=== PATIENT | female | born 1945 | race Caucasian/White ===

== ENCOUNTER → 2019-06-16 | Outpatient (CLI) | payer MEDICARE | LOC: RAD 10:26 | PROVIDERS: ATTEND Pediatrics | DX: Z12.31 Encounter for screening mammogram for malignant neoplasm of breast (principal) ==

== ENCOUNTER → 2019-06-19 | Outpatient (CLI) | payer MEDICARE ==
--- NOTE | 2019-06-19 14:01 | Diagnostic Imaging Report ---
Indication: Palpable lump left breast. No prior mammograms are available for comparison. 2-D and 3-D bilateral diagnostic mammography was performed with CAD. Scattered fibroglandular densities are identified bilaterally. There is a spiculated mass slightly outer left breast mid depth with an area of palpable abnormality. This is concerning for a neoplasm. No suspicious microcalcifications are seen. Axillae are unremarkable. IMPRESSION: BI-RADS 0 Spiculated density in the left breast slightly lower and outer aspect of the area of palpable abnormality, concerning for neoplasm. Further evaluation with ultrasound is recommended and will be performed today. Dictated by: Dictated on workstation # [id number]
--- NOTE | 2019-06-19 15:20 | Diagnostic Imaging Report ---
INDICATION: Left breast lump and abnormal mammogram. CORRELATION is made with diagnostic mammogram earlier the same day. Sonographic interrogation of the area of lump was performed. This corresponds to the 4 o'clock location, approximately 3 cm from the nipple. There is an irregular hypoechoic solid appearing mass at this location measuring 3.2 x 2.5 x 4.0 cm. There is internal vascularity. There appears to be some posterior acoustic shadowing. This is concerning for a breast neoplasm. This does correspond to the abnormality noted mammographically. Left axilla was also performed. There is a somewhat prominent fatty lymph node measuring 2.9 x 2.1 x 1.1 cm. IMPRESSION: BI-RADS Category 4 Irregular hypoechoic mass at the 4 o'clock location of the left breast, 3 cm from the nipple, corresponding to the palpable and mammographic abnormality. This is concerning for a breast neoplasm. Tissue sampling is recommended. This would be amenable to ultrasound-guided biopsy. Left axillary lymph node is indeterminate. Dictated by: Dictated on workstation # [id number]
== END ==
LOC: RAD 13:19
PROVIDERS: ATTEND Pediatrics
DX: N63.23 Unspecified lump in the left breast, lower outer quadrant (principal)
CPT/HCPCS: 76642; 77066

== ENCOUNTER → 2019-06-29 | Outpatient (CLI) | payer MEDICARE ==
[~2019-06-29] VITALS: Ht 162.6 cm; Wt 70.5 kg
[~2019-06-29] MED LIST: LIDOCAINE 1% INJ 20 ML 20 ML VIAL INJ ONE
--- NOTE | 2019-06-29 11:50 | Diagnostic Imaging Report ---
INDICATION: Left breast mass. Patient presents for ultrasound-guided biopsy. Patient was brought to the procedure room and placed on the table in the supine position. Ultrasound imaging of the left breast was performed to evaluate appropriate entry site. Skin of the left breast was prepped and draped in usual sterile fashion. Small amount of 1% lidocaine was utilized for local anesthesia. A total of 3 passes were made into the mass located at the 4:00 location of the left breast, 3 cm from the nipple utilizing a 14-gauge achieve needle. A marker clip was then deployed. Hemostasis was obtained using manual compression. Patient tolerated the procedure well and was sent for postprocedure mammogram in satisfactory condition. IMPRESSION: Successful ultrasound-guided core biopsy of the hypoechoic solid appearing mass at the 4:00 location of the left breast. Pathology results are currently pending. Dictated by: Dictated on workstation # [id number]
--- NOTE | 2019-06-29 12:22 | Diagnostic Imaging Report ---
INDICATION: Left breast mass, status post ultrasound biopsy. TECHNIQUE: Unilateral left 2D CC and ML mammography was performed. FINDINGS: There is a marker clip adjacent to the area of spiculation in the left breast. The clip is along the lateral aspect of the area of spiculation. IMPRESSION: Status post left breast biopsy with a marker clip in place. Dictated by: Dictated on workstation # [id number]
== END ==
LOC: RAD 09:19
PROVIDERS: ATTEND Pediatrics
DX: N63.20 Unspecified lump in the left breast, unspecified quadrant (principal)
CPT/HCPCS: 19083; 88305; 88360

== ENCOUNTER → 2019-07-16 | Outpatient (CLI) | payer MEDICARE, OTHER ==
[~2019-07-16] MED LIST changes: +BARIUM SUSPENSION 2.1% (VANILLA SILQ) 450 ML PO ONE; +CATHETER FLUSH 10 ML SYR IV PRN; +HOLD METFORMIN - RECEIVED CONTRAST 20 ML VIAL IV SCH; +IOHEXOL 350 MG/ML 100 ML (OMNIPAQUE 350) VIAL IV ONE; -LIDOCAINE 1% INJ 20 ML 20 ML VIAL INJ ONE; +NS 100 ML (IVPB) BAG IV ONE
--- NOTE | 2019-07-16 14:44 | Diagnostic Imaging Report ---
PROCEDURE: CT chest with contrast, CT abdomen and pelvis with and without contrast. TECHNIQUE: Pre and post intravenous contrast axial imaging of the abdomen and pelvis and post contrast axial imaging of the chest were performed. Auto Exposure Controls were utilized during the CT exam to meet ALARA standards for radiation dose reduction. INDICATION: Left breast carcinoma. COMPARISON: No prior studies are available for comparison. FINDINGS: CT chest: Irregular mass in the lateral aspect of the left breast is noted consistent with known left breast carcinoma. There is a mildly prominent lymph node in the left hilum with some cortical thickness of approximately 7 mm. Right axilla is unremarkable. No internal mammary lymphadenopathy is detected. No definite mediastinal or hilar lymphadenopathy is detected. No pericardial or pleural fluid is detected. There is a nodule in the inferior left lobe of the thyroid gland which could be further evaluated with thyroid ultrasound. A semisolid density in the right upper lobe is noted measuring 6 mm, image 47, series 3. No other parenchymal densities are identified. Osseous structures are unremarkable. IMPRESSION: 1. Left breast carcinoma with mildly prominent left axillary lymph node. Metastatic node cannot be entirely excluded. No other thoracic lymphadenopathy is detected. 2. Semi-solid 6 mm density in the right upper lobe, indeterminate. Follow-up CT chest in six months could be performed to confirm stability. 3. Inferior left lobe thyroid nodule. Dedicated thyroid ultrasound would be useful for better characterization. CT abdomen and pelvis: No discrete liver mass is identified. Gallbladder is unremarkable. No biliary ductal dilatation is seen. Pancreas and spleen are unremarkable. No adrenal mass is identified. Kidneys are unremarkable. No central, retroperitoneal or mesenteric lymphadenopathy is detected. Aorta is non-aneurysmal. The small and large bowel loops are normal caliber. Bladder is unremarkable. There is a 3 cm cyst in the left adnexa, likely ovarian. No pelvic lymphadenopathy is detected. No osteolytic or blastic lesions are identified. IMPRESSION: 1. No evidence of abdominal or pelvic lymphadenopathy or metastatic disease. 2. Left adnexal cyst, likely ovarian. Dictated by: Dictated on workstation # [id number]
--- NOTE | 2019-07-16 15:30 | Diagnostic Imaging Report ---
INDICATION: Newly diagnosed left breast carcinoma. TECHNIQUE: Patient was administered 23.2 mCi technetium 99m MDP intravenously and whole body imaging was performed after a three-hour delay. COMPARISON: No prior bone scan is available for comparison. FINDINGS: There is normal uptake of activity by the axial and appendicular skeleton. There is uptake by the kidneys with excretion into the urinary bladder. Mild uptake in the lower thoracic spine is seen in the right and left paramidline location, suggestive of facet degenerative change. There are also some probable facet degenerative changes in the lower cervical spine on the right side. There is some mild uptake in the bilateral knees as well as bilateral feet which is likely degenerative. No abnormal focus of tracer accumulation is seen to suggest osseous metastatic disease. IMPRESSION: No scintigraphic evidence of osseous metastatic disease. Dictated by: Dictated on workstation # [id number]
== END ==
LOC: CARD 11:35
PROVIDERS: ATTEND Internal Medicine Hematology & Oncology
DX: C50.912 Malignant neoplasm of unspecified site of left female breast (principal); E04.1 Nontoxic single thyroid nodule
CPT/HCPCS: 71260; 74178; 78306

== ENCOUNTER → 2019-07-17 | Outpatient (CLI) | payer MEDICARE, OTHER ==
[~2019-07-17] VITALS: Ht 162.6 cm; Wt 70.5 kg
[~2019-07-17] MED LIST changes: -BARIUM SUSPENSION 2.1% (VANILLA SILQ) 450 ML PO ONE; -CATHETER FLUSH 10 ML SYR IV PRN; -HOLD METFORMIN - RECEIVED CONTRAST 20 ML VIAL IV SCH; -IOHEXOL 350 MG/ML 100 ML (OMNIPAQUE 350) VIAL IV ONE; +LIDOCAINE 1% INJ 20 ML 20 ML VIAL INJ ONE; -NS 100 ML (IVPB) BAG IV ONE
--- NOTE | 2019-07-17 11:18 | Diagnostic Imaging Report ---
INDICATION: Left breast carcinoma. Patient presents for ultrasound-guided left axillary lymph node biopsy. FINDINGS: Patient was brought to the procedure room and placed on the bed in the supine position. Ultrasound imaging of the left axilla was performed to evaluate appropriate entry site. The left axilla was then prepped and draped in the usual sterile fashion. Small amount of 1% lidocaine was utilized for local anesthesia. A total of three passes were made into the enlarged lymph node in the left axilla utilizing a 14-gauge Achieve needle. Core biopsies were obtained. Next, a marker clip was deployed in the center of the lymph node. Hemostasis was obtained using manual compression. Patient tolerated the procedure well and left the department in stable condition. IMPRESSION: Successful ultrasound-guided core biopsy of the enlarged left axillary lymph node, as described. Pathology results are currently pending. Dictated by: Dictated on workstation # [id number]
== END ==
LOC: RAD 07:52
PROVIDERS: ATTEND Internal Medicine Hematology & Oncology
DX: C50.912 Malignant neoplasm of unspecified site of left female breast (principal)
CPT/HCPCS: 88305

== ENCOUNTER 2019-07-23 10:43 | Outpatient (RCR) | payer MEDICARE, OTHER ==
[2019-07-10 09:58] LABS: BASOPHILS # (AUTO) 0.1 10^3/uL (0.0-0.1); BASOPHILS % (AUTO) 1 % (0-10); EOSINOPHILS # (AUTO) 0.1 10^3/uL (0.0-0.3); EOSINOPHILS % (AUTO) 2 % (0-10); HEMATOCRIT 39 % (35-52); LYMPHOCYTES # (AUTO) 1.1 X 10^3 (1.0-4.0); LYMPHOCYTES % (AUTO) 22 % (12-44); MEAN CORPUSCULAR HEMOGLOBIN 31 PG (25-34); MEAN CORPUSCULAR HGB CONC 33 G/DL (32-36); MEAN CORPUSCULAR VOLUME 94 FL (80-99); MONOCYTES # (AUTO) 0.3 X 10^3 (0.0-1.0); MONOCYTES % (AUTO) 7 % (0-12); NEUTROPHILS # (AUTO) 3.6 X 10^3 (1.8-7.8); NEUTROPHILS % (AUTO) 69 % (42-75); PLATELET COUNT 212 10^3/uL (130-400); RED CELL DISTRIBUTION WIDTH 13.3 % (10.0-14.5); WHITE BLOOD COUNT 5.2 10^3/uL (4.3-11.0)
[2019-07-10 10:19] LABS: ALANINE AMINOTRANSFERASE 18 U/L (0-55); ALBUMIN 4.8 GM/DL (3.2-4.5); ALKALINE PHOSPHATASE 96 U/L (40-136); BILIRUBIN,TOTAL 0.3 MG/DL (0.1-1.0); BUN/CREATININE RATIO 10; CALCIUM 10.1 MG/DL (8.5-10.1); CARBON DIOXIDE 25 MMOL/L (21-32); CHLORIDE 105 MMOL/L (98-107); CREATININE SERUM 1.02 MG/DL (0.60-1.30); GFR ESTIMATED 53; GLUCOSE 110 MG/DL (70-105); POTASSIUM 3.8 MMOL/L (3.6-5.0); SODIUM 141 MMOL/L (135-145); TOTAL PROTEIN 8.3 GM/DL (6.4-8.2)
[2019-08-06] MEDS ORDERED: PRAV40TA2 PO (13:05)
[2019-08-06] MEDS ORDERED: LISI10TA2 PO (13:05)
== END 2019-08-05 15:53 | disposition home or self-care (01) ==
LOC: ONC 10:43
PROVIDERS: ATTEND Internal Medicine Hematology & Oncology
DX: C50.512 Malignant neoplasm of lower-outer quadrant of left female breast (principal); I10 Essential (primary) hypertension; M19.90 Unspecified osteoarthritis, unspecified site; Z85.3 Personal history of malignant neoplasm of breast
CPT/HCPCS: 80053; 85025; 99213; 99214

== ENCOUNTER → 2019-07-28 | Outpatient (CLI) | payer MEDICARE, OTHER ==
--- NOTE | 2019-07-28 10:47 | Diagnostic Imaging Report ---
PROCEDURE: US Thyroid. TECHNIQUE: Multiple real-time grayscale images were obtained of the thyroid in various projections. INDICATION: Thyroid nodule noted on recent CT. COMPARISON: Correlation is made with CT study from 07/16/2019. FINDINGS: Right lobe of the thyroid measures 4.5 x 1.3 x 1.3 cm and the left lobe measures 5.8 x 1.7 x 1.6 cm. Right lobe contains three subcentimeter cystic lesions all measuring 2-3 mm in size. Left lobe does contain a hypoechoic solid-appearing subcentimeter nodule approximately 8 mm in size. There is a dominant solid mass with central cystic changes identified in the midportion measuring 2.7 x 1.4 x 2.3 cm. This likely accounts for the nodule noted on CT. No microcalcifications are seen. Third nodule in lower pole is seen which is hypoechoic and solid measuring 1.3 x 1.4 x 1.0 cm. No microcalcifications are identified. IMPRESSION: Bilateral thyroid nodules. There is a dominant solid nodule in left lobe, as described. Fine-needle aspiration could be performed for further evaluation. Dictated by: Dictated on workstation # [id number]
== END ==
LOC: RAD 09:08
PROVIDERS: ATTEND Internal Medicine Hematology & Oncology
DX: E04.1 Nontoxic single thyroid nodule (principal)
CPT/HCPCS: 76536

== ENCOUNTER 2019-08-06 08:54 | Outpatient (CLI) | payer MEDICARE, OTHER ==
[~2019-08-06] VITALS: Ht 162.6 cm; Wt 70.9 kg
[2019-08-06] MEDS ORDERED: LISI10TA2 PO (13:05)
[2019-08-06] MEDS ORDERED: PRAV40TA2 PO (13:05)
== END 2019-08-06 13:06 | disposition home or self-care (01) ==
LOC: PREOP 08:54
PROVIDERS: ATTEND Surgery
DX: Z01.818 Encounter for other preprocedural examination (principal)

== ENCOUNTER 2019-08-10 06:00 | Day surgery (SDC) | payer MEDICARE, OTHER ==
[~2019-08-10] VITALS: Ht 162.6 cm; Wt 70.9 kg
[2019-08-10 06:25] VITALS: BP 179/83
[2019-08-10] MEDS ORDERED: LACTATED RINGERS 1,000 ML IV PRN (06:38)
[2019-08-10] MEDS ORDERED: ceFAZolin INJECTION 1,000 MG in WATER (STERILE) FOR INJECTION 10 ML IV ONE (06:45)
[2019-08-10] MEDS ORDERED: CATHETER FLUSH 10 ML SYR IV PRN (07:00)
[2019-08-10] MEDS ORDERED: 0.9% SODIUM CHLORIDE PF INJ 20 ML VIAL ONE (07:10)
[2019-08-10] MEDS ORDERED: BUP/EPI 0.5% 1:200,000 (SENSORCAINE) 30 ML VIAL ONE (07:10)
[2019-08-10] MEDS ORDERED: HEParin (CENTRAL IV FLUSH) 500 UNIT/5 ML SYR ONE (07:10)
[2019-08-10] MEDS ORDERED: MIDAZOLAM 2 MG/2 ML (VERSED) VIAL ONE (07:10)
[2019-08-10] MEDS ORDERED: PROPOFOL INJECTION 50 ML IV ONE (07:10)
[2019-08-10 08:17] VITALS: BP 136/70
--- NOTE | 2019-08-10 08:22 | Progress Note-Post Operative ---
Post-Operative Progess Note Surgeon (s)/Archeology Faculty Member (s) Surgeon JORGE JONES DO Archeology Faculty Member: na Pre-Operative Diagnosis left breast cancer Post-Operative Diagnosis same Procedure & Operative Findings Date of Procedure 08/10/19 Procedure Performed/Findings right ij u/s guided port placement Anesthesia Type mac c local Estimated Blood Loss Estimated blood loss (mL): min Specimens/Packing Specimens Removed na JORGE JONES DO Aug 10, 2019 08:22
--- NOTE | 2019-08-10 08:25 | Discharge Inst-Simple/Standard ---
Discharge Inst-Standard Patient Instructions/Follow Up Plan of Care/Instructions/FU: 2 weeks Jackie Activity as Tolerated: No Discharge Diet: Regular Diet Other Inst to Patient Follow up Appt: Make appointment for 2 week. Instructions: No lifting greater than 10 pounds. No strenuous activity. May shower in 24 hours, no tub bath or soaking. Use incentive spirometer at home as directed. No Smoking Skin/Wound Care: You have special glue over incisions it will fall off on its own. Place ice pack over port for 15 min off 30 min and repeat for first 24-48 hours to reduce swelling and discomfort. Symptoms to Report: Appetite Changes, Extremity Discoloration, Numbness/Tingling, Swelling Increased, Bleeding Excessive, Eyesight Changes, Pain Increased, Urine Color Change, Constipation(Persistent), Fever over 101 degree F, Pain/Pressure in chest, Urinating Difficulty, Cough Up/Vomit Blood, Heart Beat Irreg/Pounding, Pain/Pressure in jaw, Vaginal Bleeding Increase, Cramps in feet or legs, Lightheadedness, Pain/Pressure in shoulder, Diarrhea(Persistent), Memory Changes Suddenly, Questions/Concerns, Weight gain consecutive days, Dizziness/Fainting, Nausea/Vomiting, Shortness of Breath, Weight gain over 2 pounds If questions or concerns contact your physician Or seek help at emergency department. JORGE JONES DO Aug 10, 2019 08:25
--- NOTE | 2019-08-10 08:29 | Diagnostic Imaging Report ---
INDICATION: Fluoroscopy for Groshong catheter placement. Fluoroscopy was provided in the OR during Groshong catheter placement. 30 seconds of fluoroscopic time was utilized. A single image demonstrates a right chest wall port with tip overlying the SVC. IMPRESSION: Fluoroscopy for Groshong catheter placement. Dictated by: Dictated on workstation # [id number]
[2019-08-10 08:30] VITALS: BP 145/81
[2019-08-10 08:40] VITALS: BP_SYST 160; BP_SYST 166; BP_DIAS 77; BP_DIAS 78
--- NOTE | 2019-08-10 08:44 | Diagnostic Imaging Report ---
EXAMINATION: Chest 1 view HISTORY: s/p port COMPARISON: 07/16/2019. FINDINGS: A right port is visualized with the tip overlying the mid SVC. The lung volumes are normal. No focal consolidation is seen. No large pleural effusion or pneumothorax is seen. The cardiomediastinal silhouette is normal in size and contour. No acute osseous abnormality is seen. IMPRESSION: 1. Right port with the tip overlying the mid SVC. 2. No acute pleuroparenchymal process. Dictated by: Dictated on workstation # [id number]
[2019-08-10 09:10] VITALS: BP 164/93
--- NOTE | 2019-08-10 12:53 | OPERATIVE REPORT ---
DATE OF SERVICE: 08/10/2019 PREOPERATIVE DIAGNOSIS: Left breast cancer. POSTOPERATIVE DIAGNOSIS: Left breast cancer. PROCEDURE: Right internal jugular vein ultrasound-guided port placement. SURGEON: Jorge Mejia DO. ANESTHESIA: MAC with local. ESTIMATED BLOOD LOSS: Minimal. COMPLICATIONS: None. INDICATIONS: The patient is a 74-year-old female with left breast cancer diagnosed with left axillary involvement. She understands the risks and benefits of the procedure and wished to proceed with procedure. Consent was signed in the chart. DESCRIPTION OF PROCEDURE: The patient was taken to the operating suite. She was prepped and draped in a sterile fashion. Timeout was performed. Ultrasound was used to isolate the right internal jugular vein. The vein was then accessed using a micro access needle. The micro access wire was inserted and the needle was removed. Fluoroscopy assured proper placement. An 11-blade scalpel was used to make a small skin incision at the insertion site. A dilator was then advanced over the wire and the wire and the dilator were removed. The regular wire was placed through the sheath and placement was confirmed with fluoroscopy. The wire was then secured. Local anesthetic was infiltrated in the right neck to the right chest for pocket creation. A 15-blade scalpel was used to make a skin incision and a pocket on the right chest was created. Dilator was then advanced over the guidewire under fluoroscopy. The dilator and wire was removed. The Groshong catheter was inserted through the sheath and the sheath was then removed. The sheath was then tunneled to the pocket on the right chest. It was then cut to length and secured to the port, which was then placed within the pocket. The port was then accessed without difficulty. Blood brett without any difficulty and it was flushed with the saline and then with heparin. The subcutaneous tissues were then reapproximated using 3-0 Vicryl and the skin was then washed and dried and Skin Affix was placed over the incisions. The patient tolerated the procedure well without any complications. She was taken to the recovery room in stable condition. Chest x-ray pending. Job ID: [id number] DocumentID: [id number] Dictated Date: 08/10/2019 08:28:49 Fire Prevention Specialist Date: 08/10/2019 12:52:42 Dictated By: JORGE MEJIA DO
== END 2019-08-10 09:20 | disposition home or self-care (01) ==
LOC: SDC 06:00
PROVIDERS: ATTEND Surgery
DX: C50.912 Malignant neoplasm of unspecified site of left female breast (principal); Z11.2 Encounter for screening for other bacterial diseases; I10 Essential (primary) hypertension; E78.5 Hyperlipidemia, unspecified; Z79.899 Other long term (current) drug therapy
CPT/HCPCS: 71045; 87081

== ENCOUNTER → 2019-08-10 | Outpatient (CLI) | payer MEDICARE, OTHER ==
[~2019-08-10] MED LIST changes: -LIDOCAINE 1% INJ 20 ML 20 ML VIAL INJ ONE; +LISI10TA2 PO; +PRAV40TA2 PO
== END ==
LOC: CARD 11:09
PROVIDERS: ATTEND Internal Medicine Hematology & Oncology
DX: Z01.810 Encounter for preprocedural cardiovascular examination (principal); C50.919 Malignant neoplasm of unspecified site of unspecified female breast; I34.0 Nonrheumatic mitral (valve) insufficiency
CPT/HCPCS: 93306

== ENCOUNTER 2019-08-17 15:28 | Observation (INO) | payer MEDICARE, OTHER ==
[~2019-08-17] VITALS: Ht 165 cm; Wt 69.5 kg
[2019-08-17] VITALS: BP 144/70
[2019-08-17 16:07] LABS: BASOPHILS % (AUTO) 1 % (0-10); EOSINOPHILS % (AUTO) 2 % (0-10); HEMATOCRIT 33 % (35-52); HEMOGLOBIN 11.1 G/DL (11.5-16.0); LYMPHOCYTES # (AUTO) 0.5 X 10^3 (1.0-4.0); LYMPHOCYTES % (AUTO) 53 % (12-44); MEAN CORPUSCULAR HEMOGLOBIN 31 PG (25-34); MEAN CORPUSCULAR HGB CONC 33 G/DL (32-36); MEAN CORPUSCULAR VOLUME 94 FL (80-99); MEAN PLATELET VOLUME 12.5 FL (7.4-10.4); MONOCYTES # (AUTO) 0.1 X 10^3 (0.0-1.0); MONOCYTES % (AUTO) 11 % (0-12); NEUTROPHILS # (AUTO) 0.3 X 10^3 (1.8-7.8); NEUTROPHILS % (AUTO) 33 % (42-75); PLATELET COUNT 72 10^3/uL (130-400); RED CELL DISTRIBUTION WIDTH 12.4 % (10.0-14.5)
[2019-08-17 16:09] LABS: WHITE BLOOD COUNT 0.9 10^3/uL (4.3-11.0)
[2019-08-17] MEDS ORDERED: NS IV 1000 ML 1,000 ML IV ONE (16:09)
--- NOTE | 2019-08-17 16:09 | NUR ---
0.[address] Marin NOTIFIED
[2019-08-17] MEDS ORDERED: ONDANSETRON 4 MG/2 ML (SDV) Z0FRAN IVP ONE (16:15)
[2019-08-17 16:23] LABS: ALANINE AMINOTRANSFERASE 25 U/L (0-55); ALBUMIN 3.9 GM/DL (3.2-4.5); ALKALINE PHOSPHATASE 72 U/L (40-136); BILIRUBIN,TOTAL 0.6 MG/DL (0.1-1.0); BUN/CREATININE RATIO 13; CALCIUM 8.9 MG/DL (8.5-10.1); CARBON DIOXIDE 25 MMOL/L (21-32); CHLORIDE 103 MMOL/L (98-107); CREATININE SERUM 0.89 MG/DL (0.60-1.30); GFR ESTIMATED > 60; GLUCOSE 133 MG/DL (70-105); MAGNESIUM 1.8 MG/DL (1.6-2.4); POTASSIUM 3.7 MMOL/L (3.6-5.0); SODIUM 136 MMOL/L (135-145); TOTAL PROTEIN 6.4 GM/DL (6.4-8.2)
[2019-08-17] MEDS ORDERED: LACTATED RINGERS 1,000 ML IV ONE (16:27)
--- NOTE | 2019-08-17 16:27 | ED Abdominal Pain ---
General Chief Complaint: Abdominal/GI Problems Stated Complaint: CA PT/DIARRHEA Nursing Triage Note: PT TO ROOM 7 PER W/C PT CO OF DIARRHEA FOR 2 DAYS WEAKNESS AND NAUSEA. STARTED CHEMO LAST WEEK FOR BREAST CA. ALSO CO OF DIZZINESS AND PAIN IN LOWER BACK Sepsis Screen: No Definite Risk (DERIC LIN MEDICAL STUDENT) Source of Information: Patient Exam Limitations: No Limitations (STEPHANIE JUNIOR MD) History of Present Illness Initial Comments Ms. Pope is a 74-year old female who presents via private vehicle for diarrhea. HPI: Patient reports that she has had five episodes of watery, secretory diarrhea since 3pm yesterday. She was able to sleep through the night, but woke up this morning and has been unable to stand. When she tries to sit up or stand she feels like she is going to pass out. This is associated with nausea, but she has not vomited. She notes that she has only been able to drink 1/2 a cup of water in the last day. She received her first dose of chemotherapy last 08/12/19 for breast cancer. Her chemotherapy regimen includes: Dosetaxel, Carboplatin, Herceptin, and Pertuzumab. She is following with her Oncologist, Dr. Parker. Her diarrhea is also associated with mild back pain, bilaterally that is 3/10 in intensity. PMH: Breast Cancer, Hypertension, HLD, Osteoarthritis (DERIC LIN MEDICAL STUDENT) Date Seen by Provider: Aug 17, 2019 Time Seen by Provider: 15:46 (STEPHANIE JUNIOR MD) Allergies and Home Medications Allergies Coded Allergies: No Known Drug Allergies (Unverified , 06/29/19) Home Medications Lisinopril Unknown Strength Tablet, 1 TAB PO DAILY, (Reported) Pravastatin Sodium Unknown Strength Tablet, 1 TAB PO DAILY, (Reported) Patient Home Medication List Home Medication List Reviewed: Yes (STEPHANIE JUNIOR MD) Review of Systems Review of Systems Constitutional: no symptoms reported, dizziness, weakness EENTM: No Symptoms Reported Respiratory: No Symptoms Reported Cardiovascular: No Symptoms Reported Gastrointestinal: Diarrhea, Poor Fluid Intake Genitourinary: No Symptoms Reported Musculoskeletal: back pain Skin: no symptoms reported Psychiatric/Neurological: No Symptoms Reported Endocrine: No Symptoms Reported Hematologic/Lymphatic: No Symptoms Reported (DERIC LIN MEDICAL STUDENT) Past Gwvzgix-Sattcj-Dhstcc Hx Patient Social History Alcohol Use: Denies Use Recreational Drug Use: No Smoking Status: Never a Smoker Former Smoker, Quit: Aug 06, 1976 Recent Foreign Travel: No Contact w/Someone Who Travel: No Recent Infectious Disease Expo: No Recent Hopitalizations: No Physical Abuse: No Sexual Abuse: No (DERIC LIN MEDICAL STUDENT) Immunizations Up To Date Date of Influenza Vaccine: Apr 28, 2019 (DERIC LIN MEDICAL STUDENT) Seasonal Allergies Seasonal Allergies: Yes (DERIC LIN MEDICAL STUDENT) Past Medical History Surgeries: Yes (PORT PLACEMENT) Respiratory: No Currently Using CPAP: No Currently Using BIPAP: No Cardiac: Yes High Cholesterol, Hypertension Neurological: No Genitourinary: No Gastrointestinal: No Musculoskeletal: Yes Arthritis Endocrine: No HEENT: No Cancer: Yes Bladder, Breast Psychosocial: No Integumentary: No Blood Disorders: No (DERIC LIN MEDICAL STUDENT) Physical Exam Vital Signs Vital Signs - First Documented 08/17/19 15:30 Temp 36.5 Pulse 73 Resp 18 B/P (MAP) 159/95 (116) Pulse Ox 100 (STEPHANIE JUNIOR MD) Vital Signs Capillary Refill : Less Than 3 Seconds (DERIC LIN MEDICAL STUDENT) Height/Weight/BMI Height: '" Weight: lbs. oz. kg; 26.00 BMI Method: General Appearance: no apparent distress HEENT: normal ENT inspection Neck: normal inspection Respiratory: chest non-tender, lungs clear Cardiovascular: normal peripheral pulses, regular rate, rhythm, other (Dry mucosal membranes) Gastrointestinal: normal bowel sounds, non tender, soft Back: no CVA tenderness, no vertebral tenderness Neurologic/Psychiatric: alert, oriented x 3 Skin: warm/dry (DERIC LIN MEDICAL STUDENT) Progress/Results/Core Measures Results/Orders Lab Results Laboratory Tests Test 08/17/19 15:55 08/17/19 17:15 Range/Units White Blood Count 0.9 *L 4.3-11.0 10^3/uL Red Blood Count 3.54 L 4.35-5.85 10^6/uL Hemoglobin 11.1 L 11.5-16.0 G/DL Hematocrit 33 L 35-52 % Mean Corpuscular Volume 94 80-99 FL Mean Corpuscular Hemoglobin 31 25-34 PG Mean Corpuscular Hemoglobin Concent 33 32-36 G/DL Red Cell Distribution Width 12.4 10.0-14.5 % Platelet Count 72 L 130-400 10^3/uL Mean Platelet Volume 12.5 H 7.4-10.4 FL Neutrophils (%) (Auto) 33 L 42-75 % Lymphocytes (%) (Auto) 53 H 12-44 % Monocytes (%) (Auto) 11 0-12 % Eosinophils (%) (Auto) 2 0-10 % Basophils (%) (Auto) 1 0-10 % Neutrophils # (Auto) 0.3 L 1.8-7.8 X 10^3 Lymphocytes # (Auto) 0.5 L 1.0-4.0 X 10^3 Monocytes # (Auto) 0.1 0.0-1.0 X 10^3 Eosinophils # (Auto) 0.0 0.0-0.3 10^3/uL Basophils # (Auto) 0.0 0.0-0.1 10^3/uL Sodium Level 136 135-145 MMOL/L Potassium Level 3.7 3.6-5.0 MMOL/L Chloride Level 103 98-107 MMOL/L Carbon Dioxide Level 25 21-32 MMOL/L Anion Gap 8 5-14 MMOL/L Blood Urea Nitrogen 12 7-18 MG/DL Creatinine 0.89 0.60-1.30 MG/DL Estimat Glomerular Filtration Rate > 60 BUN/Creatinine Ratio 13 Glucose Level 133 H 70-105 MG/DL Calcium Level 8.9 8.5-10.1 MG/DL Corrected Calcium 9.0 8.5-10.1 MG/DL Magnesium Level 1.8 1.6-2.4 MG/DL Total Bilirubin 0.6 0.1-1.0 MG/DL Aspartate Amino Transf (AST/SGOT) 15 5-34 U/L Alanine Aminotransferase (ALT/SGPT) 25 0-55 U/L Alkaline Phosphatase 72 40-136 U/L Total Protein 6.4 6.4-8.2 GM/DL Albumin 3.9 3.2-4.5 GM/DL Urine Color YELLOW Urine Clarity CLEAR Urine pH 7.0 5-9 Urine Specific Gould 1.015 L 1.016-1.022 Urine Protein NEGATIVE NEGATIVE Urine Glucose (UA) NEGATIVE NEGATIVE Urine Ketones NEGATIVE NEGATIVE Urine Nitrite NEGATIVE NEGATIVE Urine Bilirubin NEGATIVE NEGATIVE Urine Urobilinogen 0.2 < = 1.0 MG/DL Urine Leukocyte Esterase NEGATIVE NEGATIVE Urine RBC (Auto) TRACE-L NEGATIVE Urine RBC NONE /HPF Urine WBC NONE /HPF Urine Renal Epithelial Cells RARE /HPF Urine Crystals NONE /LPF Urine Bacteria TRACE /HPF Urine Casts NONE /LPF Urine Mucus NEGATIVE /LPF Urine Culture Indicated NO (STEPHANIE JUNIOR MD) My Orders Orders - STEPHANIE JUNIOR MD Cbc With Automated Diff (08/17/19 15:46) Comprehensive Metabolic Panel (08/17/19 15:46) Magnesium (08/17/19 15:46) Ua Culture If Indicated (08/17/19 15:46) Ed Iv/Invasive Line Start (08/17/19 15:46) Ed Iv/Invasive Line Start (08/17/19 16:09) Ns Iv 1000 Ml (Sodium Chloride 0.9%) (08/17/19 16:09) Ondansetron Injection (Zofran Injectio (08/17/19 16:15) Lactated Ringers (Lr 1000 Ml Iv Solution (08/17/19 16:27) (STEPHANIE JUNIOR MD) Medications Given in ED Current Medications Medications Dose Ordered Sig/Amber Route Start Time Stop Time Status Last Admin Dose Admin Lactated Ringer's 1,000 ml @ 0 mls/hr Q0M ONCE IV 08/17/19 16:27 08/17/19 16:29 DC 08/17/19 17:39 1,000 MLS/HR Ondansetron HCl 8 mg ONCE ONCE IVP 08/17/19 16:15 08/17/19 16:16 DC 08/17/19 16:22 8 MG Sodium Chloride 1,000 ml @ 0 mls/hr Q0M ONCE IV 08/17/19 16:09 08/17/19 16:10 DC 08/17/19 16:23 1,000 MLS/HR (STEPHANIE JUNIOR MD) Vital Signs/I&O 08/17/19 15:30 Temp 36.5 Pulse 73 Resp 18 B/P (MAP) 159/95 (116) Pulse Ox 100 (STEPHANIE JUNIOR MD) Blood Pressure Mean: 116 Departure Communication (Admissions) Time/Spoke to Admitting Phy: 18:50 Dr. Reagan (STEPHANIE JUNIOR MD) Impression Primary Impression: Diarrhea Qualified Codes: R19.7 - Diarrhea, unspecified Additional Impressions: Nausea alone Leukopenia Qualified Codes: D72.819 - Decreased white blood cell count, unspecified Generalized weakness Disposition: ADMITTED INPATIENT Condition: Improved Admissions Decision to Admit Reason: Admit from ER (General) Decision to Admit/Date: Aug 17, 2019 Time/Decision to Admit Time: 18:45 (STEPHANIE JUNIOR MD) Departure-Patient Inst. Referrals: HAYLEE GONSALVES MD (PCP/Family) Primary Care Physician This patient was interviewed and examined by me personally along with Deric Lin, MS 4. I have reviewed MS 4 documentation and agree with his history, physical, and assessments with the following additions and corrections. This 74-year-old woman presents to the ER with profound diarrhea which she believes to be associated with chemotherapy. She also has significant nausea without vomiting. She takes Zofran to help control the nausea. Dr. Parker is her oncologist and Dr. Haylee Gonsalves is her primary care provider. She received her first round of chemotherapy on August 12. Today she presents to the emergency room because she is too weak to stand or walk. She has had very poor intake. She reports a bloated or gaseous feeling in her abdomen but no significant pain. She has a mild backache. Exam: Gen.: Alert, oriented, no acute distress HEENT: normocephalic and atraumatic, mucous membranes somewhat dry Heart: Regular rate and rhythm without murmur Lungs: Clear to auscultation bilaterally with normal effort Abdomen: Soft, nondistended, slightly uncomfortable to palpation Extremities: Normal to inspection Skin: Warm and dry Neuropsych: Alert, oriented, no focal deficits Patient was treated with Zofran and IV fluids. She received 2 L in total. Labs were relatively unremarkable. We attempted to stand the patient after hydration. Although she felt better, she still was very weak and shaky upon standing. She also continued to have multiple rounds of diarrhea while in the ER. I'm concerned about her returning home. I believe she will be a fall risk and a high risk for returning due to her symptoms. Patient is agreeable to admission for observation with continued supportive care. I discussed case with Dr. Reagan who agrees with admission. CODE STATUS was discussed with patient and she would like to have a DO NOT RESUSCITATE status. (STEPHANIE JUNIOR MD) Copy Copies To 1: HAYLEE GONSALVES MD, ALEX MEDICAL STUDENT Aug 17, 2019 16:27 STEPHANIE JUNIOR MD Aug 17, 2019 18:55
[2019-08-17 17:26] LABS: BILIRUBIN,URINE NEGATIVE (NEGATIVE); CLARITY,URINE CLEAR; COLOR,URINE YELLOW; GLUCOSE, URINE (UA) NEGATIVE (NEGATIVE); KETONES,URINE NEGATIVE (NEGATIVE); LEUKOCYTE ESTERASE ,URINE NEGATIVE (NEGATIVE); NITRITE,URINE NEGATIVE (NEGATIVE); PROTEIN,URINE NEGATIVE (NEGATIVE)
--- NOTE | 2019-08-17 17:53 | NUR ---
PT HAS DIARRHEA AT THIS X
[2019-08-17 18:11] LABS: BACTERIA,URINE TRACE /HPF; RENAL EPITHELIAL CELLS,URINE RARE /HPF
--- NOTE | 2019-08-17 18:48 | NUR ---
3RD TIME OF DIARRHEA.
--- NOTE | 2019-08-17 19:00 | NUR ---
ASSUMED PRIMARY NURSE ROLE, REPORT RECIEVED FROM AKHIL, RN
--- NOTE | 2019-08-17 20:00 | NUR ---
MINDY CORREIA admitted to room 407-1, with an admitting diagnosis of N/V/D & WEAKNESS, on 08/17/19 from ED via CART, accompanied by ED STAFF.MINDY CORREIA introduced to surroundings, call light, bed controls, phone, TV, temperature control, lights, meal times, smoking policy, visitor policy, side rail policy, bathrooms and showers. Patient Rights given to patient in the handbook. MINDY CORREIA verbalizes understanding that [facility] is not responsible for the loss or damage to any personal effects or valuables that are kept in the patients posession during their hospitalization.
[2019-08-17] MEDS ORDERED: D5 1/2 NS W/KCL 20 MEQ/L 1,000 ML IV SCH (20:15)
[2019-08-17] MEDS ORDERED: CATHETER FLUSH 10 ML SYR IV PRN (20:30)
[2019-08-17] MEDS: LOPERAMIDE 2 MG (IMODIUM) TABLET PO PRN (20:35)
[2019-08-17] MEDS: D5 1/2 NS W/KCL 20 MEQ/L 1,000 ML IV SCH (20:36)
[2019-08-17 20:40] VITALS: BP 145/66
[2019-08-17] MEDS: KETOROLAC 15 MG/ML VIAL IV PRN (20:43)
[2019-08-17] MEDS ORDERED: LOPERAMIDE 2 MG (IMODIUM) TABLET PO ONE (21:45)
--- NOTE | 2019-08-17 21:45 | NUR ---
DR KAN NOTIFIED REGARDING CONTINUED PAIN AND DIARRHEA AFTER BEING ADMINISTERED 15 MG OF TORADOL AND [address] KAN ORDERED FENTANYL 25 MCG Q3H PRN PAIN AND ONE TIME EXTRA DOSE OF 2 MG IMODIUM.
[2019-08-17] MEDS: fentaNYL INJECTION 100 MCG/2 ML AMP IVP PRN (21:57)
[2019-08-17] MEDS: ONDANSETRON 4 MG/2 ML (SDV) Z0FRAN IV PRN (23:40)
[2019-08-17 23:59] VITALS: BP 144/70
[2019-08-18] MEDS: D5 1/2 NS W/KCL 20 MEQ/L 1,000 ML IV SCH ×3 (01:39→16:51)
[2019-08-18] MEDS: fentaNYL INJECTION 100 MCG/2 ML AMP IVP PRN ×3 (01:40→17:53)
--- NOTE | 2019-08-18 01:59 | NUR ---
2340 PT C/O NAUSEA, ZOFRAN IV ADMINISTERED, PT VOMITED CLEAR FLUID AFTER ADMINISTRATION, REQUIRING BED AND GOWN CHANGE. 0035 PT REEVALUATED BY THIS RN RE NAUSEA AND SHE REPORTED THAT HER NAUSEA WAS STILL PRESENT. PHENERGREN 25 MG ADMIN. 0130 RN REEVALUATED NAUSEA, PT REPORTED THAT HER NAUSEA WAS BETTER BUT JOINT AND BACK PAIN WAS PRESENT AGAIN, 25 MCG FENTANYL ADMIN. DIARRHEA HAS SLOWED DOWN SINCE SECOND DOSE OF IMODIUM. SHE IS USING BEDSIDE COMMODE WITH SBA.
[2019-08-18 04:00] VITALS: BP 140/64
[2019-08-18] MEDS: LOPERAMIDE 2 MG (IMODIUM) TABLET PO PRN (06:13)
[2019-08-18 06:30] LABS: BASOPHILS % (AUTO) 0 % (0-10); EOSINOPHILS % (AUTO) 2 % (0-10); HEMATOCRIT 32 % (35-52); HEMOGLOBIN 10.5 G/DL (11.5-16.0); LYMPHOCYTES # (AUTO) 0.6 X 10^3 (1.0-4.0); LYMPHOCYTES % (AUTO) 45 % (12-44); MEAN CORPUSCULAR HEMOGLOBIN 31 PG (25-34); MEAN CORPUSCULAR HGB CONC 33 G/DL (32-36); MEAN CORPUSCULAR VOLUME 95 FL (80-99); MEAN PLATELET VOLUME 12.8 FL (7.4-10.4); MONOCYTES # (AUTO) 0.3 X 10^3 (0.0-1.0); MONOCYTES % (AUTO) 23 % (0-12); NEUTROPHILS # (AUTO) 0.4 X 10^3 (1.8-7.8); NEUTROPHILS % (AUTO) 31 % (42-75); PLATELET COUNT 70 10^3/uL (130-400); RED CELL DISTRIBUTION WIDTH 12.3 % (10.0-14.5)
--- NOTE | 2019-08-18 06:30 | NUR ---
AT 0630 SUNDAY FROM LAB CALLED TO REPORT CRITICAL WBC OF 1.3. THIS NURSE TRACK LEADER CALLED DR KAN WITH RESULTS. SHE ORDERED C-DIFF LAB SPECIMEN FOR HER DUE TO JUST COMPLETING A ROUND OF CHEMO.
[2019-08-18 06:32] LABS: WHITE BLOOD COUNT 1.3 10^3/uL (4.3-11.0)
[2019-08-18 06:44] LABS: ALANINE AMINOTRANSFERASE 19 U/L (0-55); ALBUMIN 3.6 GM/DL (3.2-4.5); ALKALINE PHOSPHATASE 62 U/L (40-136); BILIRUBIN,TOTAL 0.5 MG/DL (0.1-1.0); BUN/CREATININE RATIO 9; CALCIUM 8.3 MG/DL (8.5-10.1); CARBON DIOXIDE 22 MMOL/L (21-32); CHLORIDE 104 MMOL/L (98-107); CREATININE SERUM 0.85 MG/DL (0.60-1.30); GFR ESTIMATED > 60; GLUCOSE 175 MG/DL (70-105); POTASSIUM 3.7 MMOL/L (3.6-5.0); SODIUM 134 MMOL/L (135-145); TOTAL PROTEIN 6.1 GM/DL (6.4-8.2)
[2019-08-18 08:00] VITALS: BP 126/60
[2019-08-18] MEDS ORDERED: ONDA8TAB12 PO (08:47)
[2019-08-18] MEDS ORDERED: PRAV20TA3 PO (08:47)
[2019-08-18] MEDS ORDERED: DEXA4TAB PO (08:47)
[2019-08-18] MEDS ORDERED: VIT-10 PO (08:56)
[2019-08-18] MEDS ORDERED: CALC625T14 PO (08:56)
[2019-08-18] MEDS ORDERED: ACET-2267 PO (08:56)
--- NOTE | 2019-08-18 09:10 | NUR ---
SPOKE WITH THE PATIENT ABOUT HER MEDICATIONS. SHE LISTED WHAT SHE IS TAKING, I COMPARED IT WITH THE EXT MED HX. SHE STATES HER LISINOPRIL DOSE HAS BEEN INCREASED. IT WAS FILLED LISINOPRIL 10MG #90 FOR 90 DAYS 08-12-19 HOWEVER SHE STATES SHE HAS BEEN INSTRUCTED TO TAKE 2 TABS (20MG) DAILY. I CALLED [facility] TO VERIFY THE DEXAMETHASONE DIRECTIONS AND THEY ARE PATIENT STATED: 2 TABS BID THE DAY BEFORE, DAY OF, AND DAY AFTER CHEMO AND TAKE 5 TABS AT 10PM THE NIGHT BEFORE CHEMO AND 5 TABS AT 6AM THE DAY OF CHEMO. OTC MEDS: TYLENOL PRN FIBER DAILY VISION TAB DAILY
--- NOTE | 2019-08-18 11:56 | History & Physical ---
SHER GANDARA,MED STUDENT 08/18/19 1156: HPI History of Present Illness: Pt. is a 74yo female who presents c/o diarrhea x2 days. Pt. came to [facility] ED on 08/17. Patient states she has had multiple stools of watery diarrhea that began 2 days ago. She also reports weakness, nausea and lightheadedness at the time of presentation. She had not vomited until last night. Pt. denies fevers, chills, chest pain, SOB, hematemesis, melena, hematochezia, or dysuria. Her symptoms are worsened with standing as she feels like she will pass out. She was started on chemotherapy on 08/12/19 for breast cancer, and follows with Dr. Parker. She has not had symptoms like this in the past. Source: patient Exam Limitations: no limitations Time Seen by Provider: 08:15 Attending Physician Ashtyn Kan MD PCP Sarah Oneal MD Consult Date of Admission Aug 17, 2019 at 18:52 Home Medications Home Medications Reviewed patient Home Medication Reconciliation performed by pharmacy medication reconciliations heat treat technician and/or nursing. Patients Allergies have been reviewed. Allergies Coded Allergies: No Known Drug Allergies (Unverified , 06/29/19) UDS-Nnepbs-Itepul Hx Patient Social History Alcohol Use: Denies Use Recreational Drug Use: No Smoking Status: Never a Smoker Recent Foreign Travel: No Contact w/other who traveled: No Recent Hopitalizations: No Recent Infectious Disease Expo: No Immunizations Up To Date Date of Influenza Vaccine: Apr 28, 2019 Past Medical History Breast cancer Hypertension Hyperlipidemia Osteoarthritis Family Medical History Significant Family History: Hypertension Review of Systems (CHC) Constitutional: No chills, No fever; weakness Respiratory: No cough, No hemoptysis, No short of breath Cardiovascular: No chest pain, No edema, No palpitations Gastrointestinal: No abdominal pain; diarrhea; No hematemesis, No melena; nausea, vomiting (x1) Genitourinary: No dysuria, No frequency, No hematuria, No hesitancy Musculoskeletal: joint pain Psychiatric/Neurological: Denies Numbness, Denies Paresthesia, Denies Tingling Physical Exam-([facility]) Physical Exam Vital Signs VS - Last 72 Hours, by Label 08/17/19 08/17/19 08/17/19 08/17/19 15:30 19:42 20:00 20:40 Temp 36.5 36.5 37.8 Pulse 73 73 82 Resp 18 18 20 B/P (MAP) 159/95 (116) 159/95 (116) 145/66 Pulse Ox 100 100 99 O2 Delivery Room Air Room Air 08/17/19 08/18/19 08/18/19 08/18/19 23:59 01:04 04:00 08:00 Temp 37.3 37.3 36.8 Pulse 84 96 94 Resp 16 16 20 B/P (MAP) 144/70 (94) 140/64 (89) 126/60 (82) Pulse Ox 99 94 95 O2 Delivery Room Air Room Air Room Air Room Air 08/18/19 12:00 Temp 37.8 Pulse 102 Resp 20 B/P (MAP) 127/60 (82) Pulse Ox 94 O2 Delivery Room Air Capillary Refill : Less Than 3 Seconds General Appearance: WD/WN, no apparent distress HEENT: PERRL/EOMI; No scleral icterus (R), No scleral icterus (L) Neck: non-tender, supple; No lymphadenopathy (R), No lymphadenopathy (L) Respiratory: chest non-tender, lungs clear, normal breath sounds, no accessory muscle use Cardiovascular: normal peripheral pulses, regular rate, rhythm, no murmur Peripheral Pulses: 2+ Dorsalis Pedis (R), 2+ Left Dors-Pedis (L), 2+ Radial Pulses (R), 2+ Radial Pulses (L) Gastrointestinal: normal bowel sounds, soft; No guarding, No rebound; tenderness (mild epigastric tenderness to palpation) Extremities: non-tender, no pedal edema, normal capillary refill Lymphatic: no adenopathy Assessment/Plan Assessment/Plan Assessment & Plan Profuse diarrhea -chemotherapy-induced vs infectious -continue IV fluid/electrolytes 1000ml @150ml/hour Q6H -clear liquid diet -CBC, BMP -stool test for C. difficile toxin Leukopenia -continue to monitor -contact precautions Breast cancer -oncology consulted, continue management DVT prophylaxis -sequential compression -ambulate as tolerated Clinical Quality Measures DVT/VTE Risk/Contraindication: Risk Factor Score Per Nursin RFS Level Per Nursing on Admit: 4+=Very High ASHTYN KAN MD 08/18/193: HPI History of Present Illness: Source: patient Exam Limitations: no limitations Date seen by provider: Aug 18, 2019 Home Medications Allergies Coded Allergies: No Known Drug Allergies (Unverified , 06/29/19) KTF-Ckiamq-Lvsbew Hx Past Medical History Breast Ca in treatment Review of Systems (CHC) Constitutional: No chills; dizziness; No fever; weakness Respiratory: no symptoms reported; No cough, No hemoptysis, No short of breath Cardiovascular: no symptoms reported; No chest pain, No edema, No palpitations Gastrointestinal: abdominal pain, diarrhea, loss of appetite, nausea, vomiting (x1) Genitourinary: no symptoms reported; No dysuria, No frequency, No hematuria : No Musculoskeletal: no symptoms reported, joint pain Skin: no symptoms reported; No lesions, No rash Psychiatric/Neurological: No Symptoms Reported; Denies Numbness, Denies Paresthesia, Denies Tingling Reviewed Test Results Reviewed Test Results Lab Laboratory Tests Test 08/18/19 06:05 Range/Units White Blood Count 1.3 *L 4.3-11.0 10^3/uL Red Blood Count 3.36 L 4.35-5.85 10^6/uL Hemoglobin 10.5 L 11.5-16.0 G/DL Hematocrit 32 L 35-52 % Mean Corpuscular Volume 95 80-99 FL Mean Corpuscular Hemoglobin 31 25-34 PG Mean Corpuscular Hemoglobin Concent 33 32-36 G/DL Red Cell Distribution Width 12.3 10.0-14.5 % Platelet Count 70 L 130-400 10^3/uL Mean Platelet Volume 12.8 H 7.4-10.4 FL Neutrophils (%) (Auto) 31 L 42-75 % Lymphocytes (%) (Auto) 45 H 12-44 % Monocytes (%) (Auto) 23 H 0-12 % Eosinophils (%) (Auto) 2 0-10 % Basophils (%) (Auto) 0 0-10 % Neutrophils # (Auto) 0.4 L 1.8-7.8 X 10^3 Lymphocytes # (Auto) 0.6 L 1.0-4.0 X 10^3 Monocytes # (Auto) 0.3 0.0-1.0 X 10^3 Eosinophils # (Auto) 0.0 0.0-0.3 10^3/uL Basophils # (Auto) 0.0 0.0-0.1 10^3/uL Sodium Level 134 L 135-145 MMOL/L Potassium Level 3.7 3.6-5.0 MMOL/L Chloride Level 104 98-107 MMOL/L Carbon Dioxide Level 22 21-32 MMOL/L Anion Gap 8 5-14 MMOL/L Blood Urea Nitrogen 8 7-18 MG/DL Creatinine 0.85 0.60-1.30 MG/DL Estimat Glomerular Filtration Rate > 60 BUN/Creatinine Ratio 9 Glucose Level 175 H 70-105 MG/DL Calcium Level 8.3 L 8.5-10.1 MG/DL Corrected Calcium 8.6 8.5-10.1 MG/DL Total Bilirubin 0.5 0.1-1.0 MG/DL Aspartate Amino Transf (AST/SGOT) 12 5-34 U/L Alanine Aminotransferase (ALT/SGPT) 19 0-55 U/L Alkaline Phosphatase 62 40-136 U/L Total Protein 6.1 L 6.4-8.2 GM/DL Albumin 3.6 3.2-4.5 GM/DL Physical Exam-([facility]) Physical Exam General Appearance: WD/WN, no apparent distress HEENT: PERRL/EOMI Neck: non-tender, full range of motion, supple Respiratory: chest non-tender, lungs clear, normal breath sounds, no accessory muscle use Cardiovascular: normal peripheral pulses, regular rate, rhythm, no murmur Gastrointestinal: normal bowel sounds, soft; No guarding, No rebound; tenderness (diffuse abdominal pain, ) Back: no CVA tenderness, no vertebral tenderness Extremities: non-tender, no pedal edema, no calf tenderness, normal capillary refill Neurologic/Psychiatric: trade recruiter II-XII nml as tested, no motor/sensory deficits, alert, normal mood/affect, oriented x 3 Skin: normal color, warm/dry Lymphatic: no adenopathy Assessment/Plan Assessment/Plan Admission Status: Observation (1) Diarrhea Status: Acute Assessment & Plan: - C. Diff pending, most likely 2/2 to chemo on Saturday, Qualifiers: Qualified Codes: R19.7 - Diarrhea, unspecified (2) Breast cancer, left Status: Acute Assessment & Plan: - Onc consulted Qualifiers: (3) Generalized weakness Status: Acute (4) Leukopenia Status: Acute Qualifiers: Qualified Codes: D72.819 - Decreased white blood cell count, unspecified (5) DVT prophylaxis Status: Acute Assessment & Plan: - Lovenox Supervisory-Addendum Brief Verification & Attestation Participated in pt care: history Personally performed: exam Care discussed with: Medical Student Procedures: n/a Verification and Attestation of Medical Student E/M Service A medical student performed and documented this service in my presence. I reviewed and verified all information documented by the medical student and made modifications to such information, when appropriate. I personally performed the physical exam and medical decision making. Ashtyn Kan, Aug 18, 2019,19:58 SHER GANDARA,MED STUDENT Aug 18, 2019 11:56 ASHTYN KAN MD Aug 18, 2019 19:53
[2019-08-18 12:00] VITALS: BP 127/60
[2019-08-18] MEDS: KETOROLAC 15 MG/ML VIAL IV PRN ×2 (12:15→19:51)
[2019-08-18] MEDS: ONDANSETRON 4 MG/2 ML (SDV) Z0FRAN IV PRN ×2 (14:09→21:47)
--- NOTE | 2019-08-18 14:20 | NUR ---
"RD ASSESSMENT PMHx: hypercholesterolemia; HTN; CA(bladder, breast) PT INTERACTION: Pt was awake and pleasant during consult for MST score. Pt states current appetite is okay, but was better prior to admit and prior to first chemo treatment. Note pt has had meals, but no amounts eaten have been recorded. Pt states some recent issues with nausea and vomiting. Note 1 report of emesis on 08/18 and pt currently on regimen of zofran PRN, per chart review. Pt states recent issues with diarrhea for the last 2 days. Note last BM was 08/18 and pt not currently on bowel regimen per chart review. Pt states no recent wt changes. Note recent 3# wt loss x1w, per chart review. Given wt hx and PO intake, pt does not meet criteria for malnutrition per ASPEN guidelines. ABNORMAL NUTRITION-RELATED LAB VALUES LOW: Na 134; Ca 8.3 HIGH: glu 175 Est. kcal needs: 0399-1287 kcal | 25-30 kcal/kg Est. Pro needs: 70-83 g Pro | 1.0-1.2 g Pro/kg PES STATEMENT: Inadequate oral intake (NI-2.1) related to nausea | vomiting | diarrhea as evidenced by pt interview INTERVENTION: Continue with current diet order of Clear Liquid diet. Add Ensure Clear (vary) to meals TID for increased kcal intake. Provides 250 kcal and 8 g Pro per serving. Will continue to follow and reassess as pt needs and status change. MONITOR/EVALUATE: PO Intake; Plan of Care; Hydration Status; Weight Status; Lab Values Julia Hinojosa, MS, RD, LD"
[2019-08-18 16:30] VITALS: BP 149/74
[2019-08-18] MEDS: PROMETHAZINE INJ 25 MG/ML (PHENERGAN) AMP IV PRN (16:51)
[2019-08-18] MEDS ORDERED: GABAPENTIN 300 MG (NEURONTIN) CAP PO ONE (19:00)
[2019-08-18 19:50] VITALS: BP 138/64
[2019-08-18] MEDS: PANTOPRAZOLE 40 MG (PROTONIX) TAB PO SCH (19:51)
--- NOTE | 2019-08-18 20:21 | NUR ---
CONTACTED DR AGUILAR DUE TO PATIENT RUNNING FEVER 38.4 (101.2F) GAVE TORADOL NSAID FOR FEVER REDUCTION. FURTHER ORDERS BLOOD CULTURES X2 AND NOTIFY OF FEVER >101 AGAIN. TORBV
--- NOTE | 2019-08-18 20:45 | CONSULTATION REPORT ---
DATE OF SERVICE: 08/18/2019 The patient is admitted to room 407, bed 1. IMPRESSION: 1. A 74-year-old female admitted with significant diarrhea, dehydration, dizziness and falls at home. 2. Recent diagnosis of T3, N1, N0, stage III left breast cancer that was HER2/anca-positive. The patient started neoadjuvant chemotherapy with TCH+P regimen on 08/12/2019. 3. History of osteoarthritis. RECOMMENDATIONS: 1. Continue aggressive hydration because of clinical dehydration from the diarrhea as well as nausea. 2. Continue Zofran as needed and gradually increase oral intake starting with clear liquids. 3. Agree with Imodium for control of diarrhea. Most likely, the reason for the diarrhea is pertuzumab, which will be discontinued for next cycle of chemotherapy. 4. Grade III neutropenia due to chemotherapy. The patient received Neulasta post-chemotherapy and her blood counts are starting to improve. Monitor this serially. 5. 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 I will administer gabapentin 300 mg x1 tonight to see if this helps her symptoms. If so, this could be continued at bedtime. 6. Dr. Parker will see patient starting tomorrow. BRIEF HISTORY: The patient is a 74-year-old female with a recent diagnosis of stage IIIA left breast cancer that was ER and AR negative, but HER2/anca-positive. She was started on neoadjuvant chemotherapy with TCH+P regimen on 08/12/2019. Approximately 2 days later, she started developing diarrhea, which worsened over the weekend. The patient was not eating or drinking because of nausea and became extremely weak and nearly passed out 2 times at home with minor falls. She was brought to the emergency room for evaluation and admitted to the hospital for further management. Oncology consultation was requested for concurrent care. PAST MEDICAL HISTORY: Significant for recent diagnosis of locally advanced left breast cancer that is T3 N1 M0. The tumor was ER and AR negative, but HER2-anca 3+ and positive. She was recommended to start neoadjuvant chemotherapy with TCHP regimen and completed first cycle on 08/12/2019. Prior to diagnosis of cancer, she had a history of hypertension, hypercholesterolemia and osteoarthritis. SOCIAL HISTORY: The patient is and lives in [place], [place]. She has a previous history of tobacco use, but quit smoking several years ago. No history of alcohol or other recreational drug use. FAMILY HISTORY: Significant for her sister who had breast cancer. Father had coronary artery disease. Mother had hypertension as well as a history of DVT. Rest of the family history is unremarkable. PHYSICAL EXAMINATION: GENERAL: Today showed an elderly female, weak appearing, awake and oriented, in no acute distress. VITAL SIGNS: Temperature was 36.7 degree centigrade, pulse rate of 93, respirations 20, blood pressure was 149/74 with oxygen saturation of 99% on room air. HEENT: Normocephalic, extraocular muscles intact, oral mucosa slightly dry without lesions. NECK: Supple with no JVD. No cervical, supraclavicular lymphadenopathy palpable. Small lymph node was palpable in the left axilla. CHEST: Symmetrical. LUNGS: Fairly clear to auscultation without wheezes or rales. CARDIOVASCULAR: Regular in rate and rhythm. No murmurs or gallops heard. ABDOMEN: Soft, nontender with no hepatosplenomegaly or other masses palpable. EXTREMITIES: Showed no edema. SKIN: Turgor was slightly poor. NEUROLOGIC: Showed no focal motor deficits. Overall, motor strength was 4/5 bilaterally. LABORATORY DATA: CBC done yesterday at the time of admission showed white count of 0.9, hemoglobin 11.1, platelet count 72,000 with neutrophil count 0.3. Today, the total white count has increased to 1.3 with neutrophil count of 0.4. Platelets have been stable at 70,000. Chemistry panel showed relatively normal electrolytes and renal function. Nonfasting glucose was 175. Liver function studies were within normal limits. Urinalysis was unremarkable. Thank you for allowing me to participate in the patient's care. Dr. Parker will be seeing the patient tomorrow and assume oncology care. Job ID: [id number] DocumentID: [id number] Dictated Date: 08/18/2019 17:25:54 Principal Statistical Programmer Date: 08/18/2019 20:45:03 Dictated By: STEVENSON AGUILAR MD
[2019-08-19] VITALS: BP 136/65
[2019-08-19] MEDS: LOPERAMIDE 2 MG (IMODIUM) TABLET PO PRN ×2 (00:17→10:30)
[2019-08-19] MEDS: D5 1/2 NS W/KCL 20 MEQ/L 1,000 ML IV SCH ×2 (01:09→08:00)
[2019-08-19] MEDS: PROMETHAZINE INJ 25 MG/ML (PHENERGAN) AMP IV PRN (01:10)
[2019-08-19] MEDS: fentaNYL INJECTION 100 MCG/2 ML AMP IVP PRN (02:03)
[2019-08-19 04:00] VITALS: BP 134/63
[2019-08-19 05:11] LABS: BASOPHILS % (AUTO) 0 % (0-10); EOSINOPHILS % (AUTO) 1 % (0-10); HEMATOCRIT 29 % (35-52); HEMOGLOBIN 9.7 G/DL (11.5-16.0); LYMPHOCYTES # (AUTO) 1.2 X 10^3 (1.0-4.0); LYMPHOCYTES % (AUTO) 25 % (12-44); MEAN CORPUSCULAR HEMOGLOBIN 32 PG (25-34); MEAN CORPUSCULAR HGB CONC 33 G/DL (32-36); MEAN CORPUSCULAR VOLUME 96 FL (80-99); MEAN PLATELET VOLUME 11.9 FL (7.4-10.4); MONOCYTES # (AUTO) 0.8 X 10^3 (0.0-1.0); MONOCYTES % (AUTO) 17 % (0-12); NEUTROPHILS # (AUTO) 2.6 X 10^3 (1.8-7.8); NEUTROPHILS % (AUTO) 57 % (42-75); PLATELET COUNT 71 10^3/uL (130-400); RED CELL DISTRIBUTION WIDTH 12.2 % (10.0-14.5); WHITE BLOOD COUNT 4.6 10^3/uL (4.3-11.0)
[2019-08-19 05:29] LABS: BUN/CREATININE RATIO 7; CALCIUM 8.1 MG/DL (8.5-10.1); CARBON DIOXIDE 19 MMOL/L (21-32); CHLORIDE 104 MMOL/L (98-107); CREATININE SERUM 0.84 MG/DL (0.60-1.30); GFR ESTIMATED > 60; GLUCOSE 165 MG/DL (70-105); MAGNESIUM 1.5 MG/DL (1.6-2.4); POTASSIUM 3.8 MMOL/L (3.6-5.0); SODIUM 133 MMOL/L (135-145)
[2019-08-19 08:00] VITALS: BP 129/60
[2019-08-19] MEDS: ONDANSETRON 4 MG/2 ML (SDV) Z0FRAN IV PRN (08:00)
[2019-08-19] MEDS: PANTOPRAZOLE 40 MG (PROTONIX) TAB PO SCH (08:00)
--- NOTE | 2019-08-19 11:38 | Discharge Summary ---
Diagnosis/Chief Complaint Date of Admission Aug 17, 2019 at 18:52 Date of Discharge Discharge Diagnosis Problems/Diagnosis: (1) Diarrhea Assessment & Plan: - C. Diff pending, most likely 2/2 to chemo on Saturday, IVFs Qualifiers: Qualified Codes: R19.7 - Diarrhea, unspecified Status: Acute (2) Breast cancer, left Assessment & Plan: - Onc consulted Qualifiers: Status: Acute (3) Generalized weakness Status: Acute (4) Leukopenia Qualifiers: Qualified Codes: D72.819 - Decreased white blood cell count, unspecified Status: Acute (5) DVT prophylaxis Assessment & Plan: - Lovenox Status: Acute Chief Complaint/HPI Chief Complaint/HPI Discharge Summary-Simple/Stand Consultations Discharge Physical Examination Allergies: Coded Allergies: No Known Drug Allergies (Unverified , 06/29/19) Vitals & I&Os Vital Sign - Last 12Hours Date Time Temp Pulse Resp B/P (MAP) Pulse Ox O2 Delivery O2 Flow Rate FiO2 08/19/19 08:00 36.8 93 20 129/60 (83) 98 Room Air Intake and Output 08/19/19 00:00 Intake Total 490 ml Output Total 1400 ml Balance -910 ml Hospital Course See final discharge diagnosis. Discharge Instructions to patient/family Please see electronic discharge instructions given to patient. Discharge Medications Reviewed and agree with Discharge Medication list on patient's Discharge Instruction sheet Clinical Quality Measures DVT/VTE Risk/Contraindication: Risk Factor Score Per Nursin RFS Level Per Nursing on Admit: 4+=Very High ASHTYN KAN MD Aug 19, 2019 11:38
[2019-08-19] MEDS ORDERED: LOPE2CAP PO (11:40)
[2019-08-19] MEDS ORDERED: OMEP-280 PO (11:40)
--- NOTE | 2019-08-19 11:42 | Discharge Summary ---
Discharge [facility] Reconcile Patient Problems Problems Reviewed?: Yes Discharge Medications New, Converted or Re-Newed RX: Transmitted to Pharmacy New Medications: Omeprazole (Omeprazole) 20 Mg Capsule.dr 20 MG PO DAILY, #14 CAP Loperamide HCl (Loperamide) 2 Mg Capsule 2 MG PO Q6H PRN for DIARRHEA, #30 CAP Continued Medications: Acetaminophen (Tylenol Extra Strength) 500 Mg Tablet 1000 MG PO Q4H PRN for PAIN-MILD (1-4), TAB Calcium Polycarbophil (Fiber) 625 Mg Tablet 625 MG PO DAILY, TAB Dexamethasone (Dexamethasone) 4 Mg Tablet PO UD, TAB TAKE 2 (4MG) TABS TWICE DAILY THE DAY BEFORE, THE DAY OF, AND THE DAY AFTER CHEMO ADDITIONALLY TAKE 5 (4MG) TABLETS AT 10PM THE NIGHT BEFORE AND 5 (4MG) TABS AT 6AM THE MORNING OF CHEMO. Lisinopril (Lisinopril) 10 Mg Tablet 20 MG PO DAILY, TAB TAKES 2 (10MG) TABLETS Ondansetron HCl (Ondansetron HCl) 8 Mg Tablet 8 MG PO Q8H PRN for NAUSEA/VOMITING-1ST LINE, TAB Pravastatin Sodium (Pravastatin Sodium) 20 Mg Tablet 20 MG PO HS, TAB Vit A/C/E/Zinc/Selenium/Copper (Vision Formula Tablet) 1 Each Tablet 1 TAB PO DAILY, TAB Patient Instructions Goal/Follow Up Appt: You have a f.u appt with Dr Gonsalves on Thursday 08/24 @ 312 Patient Instructions: - Continue with bland diet and advance as tolerated - Focus on hydration Activity & Diet Discharge Diet: Soft Diet Activity as Tolerated: Yes Copy Copies To 1: HAYLEE GONSALVES MD, HOLLY R MD Aug 19, 2019 11:41
[2019-08-19 11:51] VITALS: BP 119/59
[2019-08-19 16:00] VITALS: BP 115/54
[2019-08-19 17:28] VITALS: BP 115/54
== END 2019-08-19 17:15 | disposition home or self-care (01) ==
LOC: EDUNIT# 15:28 → ER 15:29 → 4TH 18:52
PROVIDERS: ADMIT Family Medicine; ATTEND Family Medicine
DX: R19.7 Diarrhea, unspecified (principal); D72.819 Decreased white blood cell count, unspecified; C50.912 Malignant neoplasm of unspecified site of left female breast; E78.5 Hyperlipidemia, unspecified; I10 Essential (primary) hypertension; M19.90 Unspecified osteoarthritis, unspecified site; Z85.3 Personal history of malignant neoplasm of breast; Z85.51 Personal history of malignant neoplasm of bladder; Z79.899 Other long term (current) drug therapy; Z82.49 Family history of ischemic heart disease and other diseases of the circulatory system
CPT/HCPCS: 36415; 80048; 80053; 81000; 83735; 85025; 87040; 87324; 87449; 96361; 96374; G0378

== ENCOUNTER → 2019-08-24 | Outpatient (CLI) | payer MEDICARE, OTHER ==
[~2019-08-24] VITALS: Ht 162.6 cm; Wt 68.2 kg
[~2019-08-24] MED LIST changes: +ACET-2267 PO; +CALC625T14 PO; +DEXA4TAB PO; +LIDOCAINE 1% INJ 20 ML 20 ML VIAL INJ ONE; +LOPE2CAP PO; +OMEP-280 PO; +ONDA8TAB12 PO; +PRAV20TA3 PO; +VIT-10 PO
--- NOTE | 2019-08-24 14:15 | Diagnostic Imaging Report ---
INDICATION: Left thyroid nodule. Patient presents for ultrasound-guided fine-needle aspiration. Patient was brought to the procedure room and placed on table in the supine position. Ultrasound imaging of the left neck was performed to evaluate appropriate entry site. The left neck was then prepped and draped in usual sterile fashion. A small amount of 1% lidocaine was utilized for local anesthesia. A total of 4 passes were made into the dominant solid nodule left lobe of the thyroid utilizing 25-gauge needles and fine-needle aspiration technique. [place] were withdrawn and hemostasis was obtained. Patient tolerated the procedure well and left the department in stable condition. IMPRESSION: Ultrasound-guided fine-needle aspiration of the dominant left lobe thyroid solid nodule. Pathology results are currently pending. Dictated by: Dictated on workstation # [id number]
== END ==
LOC: RAD 12:18
PROVIDERS: ATTEND Internal Medicine Hematology & Oncology
DX: E04.1 Nontoxic single thyroid nodule (principal); C50.512 Malignant neoplasm of lower-outer quadrant of left female breast
CPT/HCPCS: 88173; 88305

== ENCOUNTER → 2019-10-07 | Outpatient (CLI) | payer MEDICARE, OTHER ==
[~2019-10-07] MED LIST changes: -LIDOCAINE 1% INJ 20 ML 20 ML VIAL INJ ONE; -OMEP-280 PO; +OMEP20CA18 PO; -ONDA8TAB12 PO; +ONDA8TAB15 PO
--- NOTE | 2019-10-07 11:15 | Diagnostic Imaging Report ---
INDICATION: Left breast carcinoma, status post chemotherapy. Correlation is made to prior with left breast ultrasound from 06/19/2019. Interrogation of the 4:00 location left breast, 3 cm from the nipple was performed. The ill-defined hypoechoic solid mass at this location is again noted but does appear to be smaller in size. This measures 1.6 x 2.2 x 1.8 cm. This compares with 3.2 x 4.0 x 2.5cm on prior. A left axillary lymph node measures 2.2 x 2.4 x 1.2 cm compare with 2.9 x 2.1 x 1.1 cm as on prior. IMPRESSION: BI-RADS Category 6 Decrease in size of the known left breast neoplasm 4:00 location when compared with prior study from 06/19/2019. Left axillary lymph node also shows mild decrease in size. Dictated by: Dictated on workstation # [id number]
== END ==
LOC: RAD 09:41
PROVIDERS: ATTEND Internal Medicine Hematology & Oncology
DX: C50.912 Malignant neoplasm of unspecified site of left female breast (principal); Z92.21 Personal history of antineoplastic chemotherapy
CPT/HCPCS: 76642

== ENCOUNTER 2019-11-05 13:42 | Outpatient (RCR) | payer MEDICARE, OTHER ==
[2019-08-12 09:02] LABS: BASOPHILS % (AUTO) 0 % (0-10); EOSINOPHILS % (AUTO) 0 % (0-10); HEMATOCRIT 35 % (35-52); HEMOGLOBIN 11.3 G/DL (11.5-16.0); LYMPHOCYTES # (AUTO) 0.6 X 10^3 (1.0-4.0); LYMPHOCYTES % (AUTO) 5 % (12-44); MEAN CORPUSCULAR HEMOGLOBIN 31 PG (25-34); MEAN CORPUSCULAR HGB CONC 33 G/DL (32-36); MEAN CORPUSCULAR VOLUME 96 FL (80-99); MEAN PLATELET VOLUME 11.3 FL (7.4-10.4); MONOCYTES # (AUTO) 0.1 X 10^3 (0.0-1.0); MONOCYTES % (AUTO) 1 % (0-12); NEUTROPHILS # (AUTO) 10.6 X 10^3 (1.8-7.8); NEUTROPHILS % (AUTO) 94 % (42-75); PLATELET COUNT 191 10^3/uL (130-400); RED CELL DISTRIBUTION WIDTH 12.7 % (10.0-14.5); WHITE BLOOD COUNT 11.3 10^3/uL (4.3-11.0)
[2019-08-12 09:25] LABS: ALBUMIN 4.5 GM/DL (3.2-4.5); BILIRUBIN,TOTAL 0.2 MG/DL (0.1-1.0); CALCIUM 9.7 MG/DL (8.5-10.1); CREATININE SERUM 1.05 MG/DL (0.60-1.30); POTASSIUM 3.5 MMOL/L (3.6-5.0); TOTAL PROTEIN 7.7 GM/DL (6.4-8.2)
[2019-08-26 14:16] LABS: BASOPHILS % (AUTO) 0 % (0-10); EOSINOPHILS % (AUTO) 0 % (0-10); HEMATOCRIT 32 % (35-52); HEMOGLOBIN 10.2 G/DL (11.5-16.0); LYMPHOCYTES # (AUTO) 1.5 X 10^3 (1.0-4.0); LYMPHOCYTES % (AUTO) 16 % (12-44); MEAN CORPUSCULAR HEMOGLOBIN 31 PG (25-34); MEAN CORPUSCULAR HGB CONC 32 G/DL (32-36); MEAN CORPUSCULAR VOLUME 97 FL (80-99); MEAN PLATELET VOLUME 10.2 FL (7.4-10.4); MONOCYTES # (AUTO) 0.4 X 10^3 (0.0-1.0); MONOCYTES % (AUTO) 4 % (0-12); NEUTROPHILS # (AUTO) 7.3 X 10^3 (1.8-7.8); NEUTROPHILS % (AUTO) 79 % (42-75); PLATELET COUNT 231 10^3/uL (130-400); RED CELL DISTRIBUTION WIDTH 12.6 % (10.0-14.5); WHITE BLOOD COUNT 9.2 10^3/uL (4.3-11.0)
[2019-08-26 14:34] LABS: BUN/CREATININE RATIO 10; CALCIUM 8.8 MG/DL (8.5-10.1); CARBON DIOXIDE 31 MMOL/L (21-32); CHLORIDE 101 MMOL/L (98-107); CREATININE SERUM 0.81 MG/DL (0.60-1.30); GFR ESTIMATED > 60; GLUCOSE 162 MG/DL (70-105); POTASSIUM 3.4 MMOL/L (3.6-5.0); SODIUM 138 MMOL/L (135-145)
[2019-09-02 09:10] LABS: BASOPHILS % (AUTO) 0 % (0-10); EOSINOPHILS % (AUTO) 0 % (0-10); HEMATOCRIT 32 % (35-52); HEMOGLOBIN 10.5 G/DL (11.5-16.0); LYMPHOCYTES # (AUTO) 0.7 X 10^3 (1.0-4.0); LYMPHOCYTES % (AUTO) 6 % (12-44); MEAN CORPUSCULAR HEMOGLOBIN 32 PG (25-34); MEAN CORPUSCULAR HGB CONC 33 G/DL (32-36); MEAN CORPUSCULAR VOLUME 97 FL (80-99); MEAN PLATELET VOLUME 9.8 FL (7.4-10.4); MONOCYTES # (AUTO) 0.2 X 10^3 (0.0-1.0); MONOCYTES % (AUTO) 2 % (0-12); NEUTROPHILS # (AUTO) 10.2 X 10^3 (1.8-7.8); NEUTROPHILS % (AUTO) 91 % (42-75); PLATELET COUNT 437 10^3/uL (130-400); WHITE BLOOD COUNT 11.2 10^3/uL (4.3-11.0)
[2019-09-02 09:31] LABS: ALANINE AMINOTRANSFERASE 19 U/L (0-55); ALBUMIN 4.1 GM/DL (3.2-4.5); ALKALINE PHOSPHATASE 146 U/L (40-136); BILIRUBIN,TOTAL 0.2 MG/DL (0.1-1.0); BUN/CREATININE RATIO 13; CALCIUM 9.8 MG/DL (8.5-10.1); CARBON DIOXIDE 24 MMOL/L (21-32); CHLORIDE 103 MMOL/L (98-107); CREATININE SERUM 0.86 MG/DL (0.60-1.30); GFR ESTIMATED > 60; GLUCOSE 169 MG/DL (70-105); POTASSIUM 3.7 MMOL/L (3.6-5.0); SODIUM 137 MMOL/L (135-145); TOTAL PROTEIN 6.9 GM/DL (6.4-8.2)
[2019-09-09 14:42] LABS: BASOPHILS % (AUTO) 0 % (0-10); EOSINOPHILS % (AUTO) 0 % (0-10); HEMATOCRIT 32 % (35-52); HEMOGLOBIN 10.2 G/DL (11.5-16.0); LYMPHOCYTES # (AUTO) 2.3 X 10^3 (1.0-4.0); LYMPHOCYTES % (AUTO) 21 % (12-44); MEAN CORPUSCULAR HEMOGLOBIN 31 PG (25-34); MEAN CORPUSCULAR HGB CONC 32 G/DL (32-36); MEAN CORPUSCULAR VOLUME 98 FL (80-99); MEAN PLATELET VOLUME 11.6 FL (7.4-10.4); MONOCYTES # (AUTO) 1.6 X 10^3 (0.0-1.0); MONOCYTES % (AUTO) 14 % (0-12); NEUTROPHILS # (AUTO) 7.1 X 10^3 (1.8-7.8); NEUTROPHILS % (AUTO) 64 % (42-75); PLATELET COUNT 98 10^3/uL (130-400); RED CELL DISTRIBUTION WIDTH 13.2 % (10.0-14.5)
[2019-09-09 15:14] LABS: CALCIUM 9.1 MG/DL (8.5-10.1); POTASSIUM 3.2 MMOL/L (3.6-5.0)
[2019-09-16 13:51] LABS: BASOPHILS % (AUTO) 0 % (0-10); EOSINOPHILS % (AUTO) 0 % (0-10); HEMATOCRIT 29 % (35-52); HEMOGLOBIN 9.4 G/DL (11.5-16.0); LYMPHOCYTES # (AUTO) 1.3 X 10^3 (1.0-4.0); LYMPHOCYTES % (AUTO) 15 % (12-44); MEAN CORPUSCULAR HEMOGLOBIN 32 PG (25-34); MEAN CORPUSCULAR HGB CONC 32 G/DL (32-36); MEAN CORPUSCULAR VOLUME 99 FL (80-99); MEAN PLATELET VOLUME 10.1 FL (7.4-10.4); MONOCYTES # (AUTO) 0.5 X 10^3 (0.0-1.0); MONOCYTES % (AUTO) 5 % (0-12); NEUTROPHILS # (AUTO) 6.9 X 10^3 (1.8-7.8); NEUTROPHILS % (AUTO) 80 % (42-75); PLATELET COUNT 137 10^3/uL (130-400); RED CELL DISTRIBUTION WIDTH 13.5 % (10.0-14.5); WHITE BLOOD COUNT 8.7 10^3/uL (4.3-11.0)
[2019-09-16 14:09] LABS: BUN/CREATININE RATIO 10; CALCIUM 8.7 MG/DL (8.5-10.1); CARBON DIOXIDE 26 MMOL/L (21-32); CHLORIDE 104 MMOL/L (98-107); CREATININE SERUM 0.77 MG/DL (0.60-1.30); GFR ESTIMATED > 60; GLUCOSE 126 MG/DL (70-105); POTASSIUM 2.9 MMOL/L (3.6-5.0); SODIUM 140 MMOL/L (135-145)
[2019-09-23 09:04] LABS: BASOPHILS % (AUTO) 0 % (0-10); EOSINOPHILS % (AUTO) 0 % (0-10); HEMATOCRIT 30 % (35-52); HEMOGLOBIN 9.8 G/DL (11.5-16.0); LYMPHOCYTES # (AUTO) 0.5 X 10^3 (1.0-4.0); LYMPHOCYTES % (AUTO) 5 % (12-44); MEAN CORPUSCULAR HEMOGLOBIN 32 PG (25-34); MEAN CORPUSCULAR HGB CONC 32 G/DL (32-36); MEAN CORPUSCULAR VOLUME 100 FL (80-99); MEAN PLATELET VOLUME 9.4 FL (7.4-10.4); MONOCYTES # (AUTO) 0.3 X 10^3 (0.0-1.0); MONOCYTES % (AUTO) 2 % (0-12); NEUTROPHILS # (AUTO) 9.9 X 10^3 (1.8-7.8); NEUTROPHILS % (AUTO) 93 % (42-75); PLATELET COUNT 341 10^3/uL (130-400); WHITE BLOOD COUNT 10.6 10^3/uL (4.3-11.0)
[2019-09-23 09:24] LABS: ALANINE AMINOTRANSFERASE 14 U/L (0-55); ALBUMIN 4.1 GM/DL (3.2-4.5); ALKALINE PHOSPHATASE 143 U/L (40-136); BILIRUBIN,TOTAL 0.2 MG/DL (0.1-1.0); BUN/CREATININE RATIO 15; CALCIUM 9.8 MG/DL (8.5-10.1); CARBON DIOXIDE 23 MMOL/L (21-32); CHLORIDE 103 MMOL/L (98-107); CREATININE SERUM 0.88 MG/DL (0.60-1.30); GFR ESTIMATED > 60; GLUCOSE 158 MG/DL (70-105); POTASSIUM 4.3 MMOL/L (3.6-5.0); SODIUM 137 MMOL/L (135-145); TOTAL PROTEIN 6.8 GM/DL (6.4-8.2)
[2019-09-30 14:57] LABS: BASOPHILS % (AUTO) 0 % (0-10); EOSINOPHILS % (AUTO) 0 % (0-10); HEMATOCRIT 30 % (35-52); HEMOGLOBIN 9.6 G/DL (11.5-16.0); LYMPHOCYTES # (AUTO) 2.1 X 10^3 (1.0-4.0); LYMPHOCYTES % (AUTO) 27 % (12-44); MEAN CORPUSCULAR HEMOGLOBIN 32 PG (25-34); MEAN CORPUSCULAR HGB CONC 32 G/DL (32-36); MEAN CORPUSCULAR VOLUME 101 FL (80-99); MONOCYTES % (AUTO) 12 % (0-12); NEUTROPHILS # (AUTO) 4.7 X 10^3 (1.8-7.8); NEUTROPHILS % (AUTO) 60 % (42-75); PLATELET COUNT 102 10^3/uL (130-400); RED CELL DISTRIBUTION WIDTH 15.1 % (10.0-14.5); WHITE BLOOD COUNT 7.9 10^3/uL (4.3-11.0)
[2019-09-30 15:13] LABS: BUN/CREATININE RATIO 11; CALCIUM 8.7 MG/DL (8.5-10.1); CARBON DIOXIDE 30 MMOL/L (21-32); CHLORIDE 102 MMOL/L (98-107); CREATININE SERUM 0.89 MG/DL (0.60-1.30); GFR ESTIMATED > 60; GLUCOSE 120 MG/DL (70-105); POTASSIUM 3.5 MMOL/L (3.6-5.0); SODIUM 138 MMOL/L (135-145)
[2019-10-07 14:53] LABS: BASOPHILS % (AUTO) 0 % (0-10); EOSINOPHILS % (AUTO) 0 % (0-10); HEMATOCRIT 30 % (35-52); HEMOGLOBIN 9.5 G/DL (11.5-16.0); LYMPHOCYTES # (AUTO) 1.6 X 10^3 (1.0-4.0); LYMPHOCYTES % (AUTO) 20 % (12-44); MEAN CORPUSCULAR HEMOGLOBIN 33 PG (25-34); MEAN CORPUSCULAR HGB CONC 32 G/DL (32-36); MEAN CORPUSCULAR VOLUME 102 FL (80-99); MEAN PLATELET VOLUME 10.3 FL (7.4-10.4); MONOCYTES # (AUTO) 0.4 X 10^3 (0.0-1.0); MONOCYTES % (AUTO) 5 % (0-12); NEUTROPHILS # (AUTO) 5.7 X 10^3 (1.8-7.8); NEUTROPHILS % (AUTO) 74 % (42-75); PLATELET COUNT 139 10^3/uL (130-400); RED CELL DISTRIBUTION WIDTH 16.5 % (10.0-14.5); WHITE BLOOD COUNT 7.7 10^3/uL (4.3-11.0)
[2019-10-07 15:17] LABS: BUN/CREATININE RATIO 14; CALCIUM 8.9 MG/DL (8.5-10.1); CARBON DIOXIDE 27 MMOL/L (21-32); CHLORIDE 103 MMOL/L (98-107); CREATININE SERUM 0.78 MG/DL (0.60-1.30); GFR ESTIMATED > 60; GLUCOSE 158 MG/DL (70-105); POTASSIUM 2.9 MMOL/L (3.6-5.0); SODIUM 141 MMOL/L (135-145)
[2019-10-14 09:02] LABS: BASOPHILS % (AUTO) 0 % (0-10); EOSINOPHILS % (AUTO) 0 % (0-10); HEMATOCRIT 30 % (35-52); HEMOGLOBIN 9.7 G/DL (11.5-16.0); LYMPHOCYTES # (AUTO) 0.6 X 10^3 (1.0-4.0); LYMPHOCYTES % (AUTO) 6 % (12-44); MEAN CORPUSCULAR HEMOGLOBIN 34 PG (25-34); MEAN CORPUSCULAR HGB CONC 33 G/DL (32-36); MEAN CORPUSCULAR VOLUME 103 FL (80-99); MEAN PLATELET VOLUME 10.1 FL (7.4-10.4); MONOCYTES # (AUTO) 0.3 X 10^3 (0.0-1.0); MONOCYTES % (AUTO) 3 % (0-12); NEUTROPHILS # (AUTO) 9.2 X 10^3 (1.8-7.8); NEUTROPHILS % (AUTO) 91 % (42-75); PLATELET COUNT 285 10^3/uL (130-400); RED CELL DISTRIBUTION WIDTH 18.2 % (10.0-14.5)
[2019-10-14 09:21] LABS: ALBUMIN 4.2 GM/DL (3.2-4.5); BILIRUBIN,TOTAL 0.2 MG/DL (0.1-1.0); CALCIUM 9.7 MG/DL (8.5-10.1); CREATININE SERUM 0.94 MG/DL (0.60-1.30); POTASSIUM 4.4 MMOL/L (3.6-5.0); TOTAL PROTEIN 6.9 GM/DL (6.4-8.2)
[2019-10-21 14:49] LABS: BASOPHILS % (AUTO) 0 % (0-10); EOSINOPHILS % (AUTO) 0 % (0-10); HEMATOCRIT 29 % (35-52); HEMOGLOBIN 9.3 G/DL (11.5-16.0); LYMPHOCYTES # (AUTO) 1.9 X 10^3 (1.0-4.0); LYMPHOCYTES % (AUTO) 34 % (12-44); MEAN CORPUSCULAR HEMOGLOBIN 34 PG (25-34); MEAN CORPUSCULAR HGB CONC 33 G/DL (32-36); MEAN CORPUSCULAR VOLUME 104 FL (80-99); MEAN PLATELET VOLUME 11.7 FL (7.4-10.4); MONOCYTES # (AUTO) 1.1 X 10^3 (0.0-1.0); MONOCYTES % (AUTO) 19 % (0-12); NEUTROPHILS # (AUTO) 2.6 X 10^3 (1.8-7.8); NEUTROPHILS % (AUTO) 47 % (42-75); PLATELET COUNT 81 10^3/uL (130-400); RED CELL DISTRIBUTION WIDTH 17.2 % (10.0-14.5); WHITE BLOOD COUNT 5.6 10^3/uL (4.3-11.0)
[2019-10-21 15:15] LABS: BUN/CREATININE RATIO 13; CALCIUM 9.1 MG/DL (8.5-10.1); CARBON DIOXIDE 25 MMOL/L (21-32); CHLORIDE 100 MMOL/L (98-107); CREATININE SERUM 0.88 MG/DL (0.60-1.30); GFR ESTIMATED > 60; GLUCOSE 135 MG/DL (70-105); POTASSIUM 3.6 MMOL/L (3.6-5.0); SODIUM 135 MMOL/L (135-145)
[2019-10-28 14:55] LABS: BASOPHILS % (AUTO) 0 % (0-10); EOSINOPHILS % (AUTO) 0 % (0-10); HEMATOCRIT 28 % (35-52); HEMOGLOBIN 8.9 G/DL (11.5-16.0); LYMPHOCYTES # (AUTO) 1.2 X 10^3 (1.0-4.0); LYMPHOCYTES % (AUTO) 17 % (12-44); MEAN CORPUSCULAR HEMOGLOBIN 34 PG (25-34); MEAN CORPUSCULAR HGB CONC 32 G/DL (32-36); MEAN CORPUSCULAR VOLUME 106 FL (80-99); MEAN PLATELET VOLUME 10.6 FL (7.4-10.4); MONOCYTES # (AUTO) 0.4 X 10^3 (0.0-1.0); MONOCYTES % (AUTO) 6 % (0-12); NEUTROPHILS # (AUTO) 5.8 X 10^3 (1.8-7.8); NEUTROPHILS % (AUTO) 78 % (42-75); PLATELET COUNT 106 10^3/uL (130-400); RED CELL DISTRIBUTION WIDTH 17.5 % (10.0-14.5); WHITE BLOOD COUNT 7.4 10^3/uL (4.3-11.0)
[2019-10-28 15:13] LABS: BUN/CREATININE RATIO 11; CALCIUM 8.4 MG/DL (8.5-10.1); CARBON DIOXIDE 23 MMOL/L (21-32); CHLORIDE 104 MMOL/L (98-107); CREATININE SERUM 0.87 MG/DL (0.60-1.30); GFR ESTIMATED > 60; GLUCOSE 154 MG/DL (70-105); POTASSIUM 3.1 MMOL/L (3.6-5.0); SODIUM 139 MMOL/L (135-145)
[2019-11-04 09:50] LABS: BASOPHILS % (AUTO) 0 % (0-10); EOSINOPHILS % (AUTO) 0 % (0-10); HEMATOCRIT 26 % (35-52); HEMOGLOBIN 8.5 G/DL (11.5-16.0); LYMPHOCYTES # (AUTO) 0.5 X 10^3 (1.0-4.0); LYMPHOCYTES % (AUTO) 7 % (12-44); MEAN CORPUSCULAR HEMOGLOBIN 34 PG (25-34); MEAN CORPUSCULAR HGB CONC 33 G/DL (32-36); MEAN CORPUSCULAR VOLUME 106 FL (80-99); MEAN PLATELET VOLUME 9.5 FL (7.4-10.4); MONOCYTES # (AUTO) 0.2 X 10^3 (0.0-1.0); MONOCYTES % (AUTO) 3 % (0-12); NEUTROPHILS # (AUTO) 7.3 X 10^3 (1.8-7.8); NEUTROPHILS % (AUTO) 90 % (42-75); PLATELET COUNT 193 10^3/uL (130-400); RED CELL DISTRIBUTION WIDTH 18.1 % (10.0-14.5)
[2019-11-04 09:58] LABS: ALBUMIN 4.1 GM/DL (3.2-4.5); CHLORIDE 101 MMOL/L (98-107); POTASSIUM 3.4 MMOL/L (3.6-5.0); SODIUM 136 MMOL/L (135-145)
[2019-11-04 10:00] LABS: CALCIUM 9.3 MG/DL (8.5-10.1)
[2019-11-04 10:01] LABS: GLUCOSE 175 MG/DL (70-105); TOTAL PROTEIN 6.3 GM/DL (6.4-8.2)
[2019-11-04 10:02] LABS: CARBON DIOXIDE 23 MMOL/L (21-32)
[2019-11-04 10:03] LABS: BILIRUBIN,TOTAL 0.2 MG/DL (0.1-1.0)
[2019-11-04 10:04] LABS: ALKALINE PHOSPHATASE 99 U/L (40-136); CREATININE SERUM 0.84 MG/DL (0.60-1.30); GFR ESTIMATED > 60
[2019-11-04 10:05] LABS: BUN/CREATININE RATIO 18
[2019-11-04 10:07] LABS: ALANINE AMINOTRANSFERASE 13 U/L (0-55)
[~2019-11-05] VITALS: Ht 162.6 cm; Wt 65.3 kg
[~2019-11-05 13:42] MED LIST changes: +CARBOPLATIN IV SCH; +D5W IV SCH; +DOCETAXEL IV SCH; +FAMOTIDINE 20MG/2ML IV (CANCER CTR) IV SCH; +FOSAPREPITANT DIMEGLUMINE 150 MG in NS (IVPB) CANCER CENTER ONLY 150 ML IV SCH; +NORMAL SALINE IV SCH; +NS IV 1000 ML (CANCER CTR) IV SCH; +NS IV ONE; +NS IV SCH; +PALONOSETRON HCL 0.25 MG, DEXAMETHASONE INJECTION 10 MG in NS (IVPB) CANCER CENTER 50 ML IV SCH; +PEGFILGRASTIM 6 MG/0.6ML NEULASTA SC SCH; +PERTUZUMAB 840 MG in NS (IVPB) CANCER CENTER 250 ML IV ONE; +TRASTUZUMAB IV ONE; +TRASTUZUMAB IV SCH; +diphenhydrAMINE 25 MG TAB (BENADRYL) CANCER CENTER PO SCH; +diphenhydrAMINE 50 MG/ML INJ (CANCER CENTER) IV PRN
== END 2019-11-10 | disposition home or self-care (01) ==
LOC: ONC 13:42
PROVIDERS: ATTEND Internal Medicine Hematology & Oncology
DX: Z51.11 Encounter for antineoplastic chemotherapy (principal); C50.512 Malignant neoplasm of lower-outer quadrant of left female breast; I10 Essential (primary) hypertension; M19.90 Unspecified osteoarthritis, unspecified site
CPT/HCPCS: 36591; 80048; 80053; 85025; 96367; 96372; 96375; 96413; 96417

== ENCOUNTER → 2019-12-16 | Outpatient (CLI) | payer MEDICARE, OTHER ==
[~2019-12-16] MED LIST changes: -CARBOPLATIN IV SCH; -D5W IV SCH; -DOCETAXEL IV SCH; -FAMOTIDINE 20MG/2ML IV (CANCER CTR) IV SCH; -FOSAPREPITANT DIMEGLUMINE 150 MG in NS (IVPB) CANCER CENTER ONLY 150 ML IV SCH; -NORMAL SALINE IV SCH; -NS IV 1000 ML (CANCER CTR) IV SCH; -NS IV ONE; -NS IV SCH; -PALONOSETRON HCL 0.25 MG, DEXAMETHASONE INJECTION 10 MG in NS (IVPB) CANCER CENTER 50 ML IV SCH; -PEGFILGRASTIM 6 MG/0.6ML NEULASTA SC SCH; -PERTUZUMAB 840 MG in NS (IVPB) CANCER CENTER 250 ML IV ONE; -TRASTUZUMAB IV ONE; -TRASTUZUMAB IV SCH; -diphenhydrAMINE 25 MG TAB (BENADRYL) CANCER CENTER PO SCH; -diphenhydrAMINE 50 MG/ML INJ (CANCER CENTER) IV PRN
== END ==
LOC: CARD 11:51
PROVIDERS: ATTEND Internal Medicine Hematology & Oncology
DX: Z01.810 Encounter for preprocedural cardiovascular examination (principal); C50.512 Malignant neoplasm of lower-outer quadrant of left female breast; I08.1 Rheumatic disorders of both mitral and tricuspid valves
CPT/HCPCS: 93306

== ENCOUNTER 2020-01-19 13:17 | Outpatient (RCR) | payer MEDICARE, OTHER ==
[2019-11-11 12:00] LABS: BASOPHILS % (AUTO) 0 % (0-10); EOSINOPHILS % (AUTO) 0 % (0-10); HEMATOCRIT 27 % (35-52); HEMOGLOBIN 8.9 G/DL (11.5-16.0); LYMPHOCYTES # (AUTO) 1.6 X 10^3 (1.0-4.0); LYMPHOCYTES % (AUTO) 25 % (12-44); MEAN CORPUSCULAR HEMOGLOBIN 36 PG (25-34); MEAN CORPUSCULAR HGB CONC 33 G/DL (32-36); MEAN CORPUSCULAR VOLUME 109 FL (80-99); MEAN PLATELET VOLUME 11.3 FL (7.4-10.4); MONOCYTES # (AUTO) 1.2 X 10^3 (0.0-1.0); MONOCYTES % (AUTO) 18 % (0-12); NEUTROPHILS # (AUTO) 3.7 X 10^3 (1.8-7.8); NEUTROPHILS % (AUTO) 57 % (42-75); PLATELET COUNT 98 10^3/uL (130-400); RED CELL DISTRIBUTION WIDTH 16.2 % (10.0-14.5); WHITE BLOOD COUNT 6.5 10^3/uL (4.3-11.0)
[2019-11-11 12:15] LABS: BUN/CREATININE RATIO 13; CALCIUM 8.8 MG/DL (8.5-10.1); CARBON DIOXIDE 27 MMOL/L (21-32); CHLORIDE 100 MMOL/L (98-107); CREATININE SERUM 0.83 MG/DL (0.60-1.30); GFR ESTIMATED > 60; GLUCOSE 137 MG/DL (70-105); POTASSIUM 3.1 MMOL/L (3.6-5.0); SODIUM 138 MMOL/L (135-145)
[2019-11-18 14:37] LABS: BASOPHILS % (AUTO) 0 % (0-10); EOSINOPHILS % (AUTO) 0 % (0-10); HEMATOCRIT 26 % (35-52); HEMOGLOBIN 8.4 G/DL (11.5-16.0); LYMPHOCYTES # (AUTO) 1.6 X 10^3 (1.0-4.0); LYMPHOCYTES % (AUTO) 17 % (12-44); MEAN CORPUSCULAR HEMOGLOBIN 36 PG (25-34); MEAN CORPUSCULAR HGB CONC 32 G/DL (32-36); MEAN CORPUSCULAR VOLUME 111 FL (80-99); MEAN PLATELET VOLUME 10.1 FL (7.4-10.4); MONOCYTES # (AUTO) 0.5 X 10^3 (0.0-1.0); MONOCYTES % (AUTO) 5 % (0-12); NEUTROPHILS # (AUTO) 7.2 X 10^3 (1.8-7.8); NEUTROPHILS % (AUTO) 78 % (42-75); PLATELET COUNT 126 10^3/uL (130-400); RED CELL DISTRIBUTION WIDTH 15.4 % (10.0-14.5); WHITE BLOOD COUNT 9.3 10^3/uL (4.3-11.0)
[2019-11-18 14:54] LABS: BUN/CREATININE RATIO 13; CALCIUM 8.4 MG/DL (8.5-10.1); CARBON DIOXIDE 28 MMOL/L (21-32); CHLORIDE 105 MMOL/L (98-107); GFR ESTIMATED > 60; GLUCOSE 131 MG/DL (70-105); POTASSIUM 3.6 MMOL/L (3.6-5.0); SODIUM 140 MMOL/L (135-145)
[2019-11-25 09:24] LABS: BASOPHILS % (AUTO) 0 % (0-10); EOSINOPHILS % (AUTO) 0 % (0-10); HEMATOCRIT 27 % (35-52); HEMOGLOBIN 8.7 G/DL (11.5-16.0); LYMPHOCYTES # (AUTO) 0.5 X 10^3 (1.0-4.0); LYMPHOCYTES % (AUTO) 6 % (12-44); MEAN CORPUSCULAR HEMOGLOBIN 36 PG (25-34); MEAN CORPUSCULAR HGB CONC 32 G/DL (32-36); MEAN CORPUSCULAR VOLUME 111 FL (80-99); MONOCYTES # (AUTO) 0.5 X 10^3 (0.0-1.0); MONOCYTES % (AUTO) 6 % (0-12); NEUTROPHILS % (AUTO) 89 % (42-75); PLATELET COUNT 178 10^3/uL (130-400); RED CELL DISTRIBUTION WIDTH 15.6 % (10.0-14.5)
[2019-11-25 09:45] LABS: ALANINE AMINOTRANSFERASE 12 U/L (0-55); ALBUMIN 4.1 GM/DL (3.2-4.5); ALKALINE PHOSPHATASE 100 U/L (40-136); BILIRUBIN,TOTAL 0.2 MG/DL (0.1-1.0); BUN/CREATININE RATIO 15; CALCIUM 9.4 MG/DL (8.5-10.1); CARBON DIOXIDE 21 MMOL/L (21-32); CHLORIDE 104 MMOL/L (98-107); CREATININE SERUM 0.85 MG/DL (0.60-1.30); GFR ESTIMATED > 60; GLUCOSE 130 MG/DL (70-105); SODIUM 137 MMOL/L (135-145); TOTAL PROTEIN 6.5 GM/DL (6.4-8.2)
[2019-12-02 13:33] LABS: BASOPHILS % (AUTO) 0 % (0-10); EOSINOPHILS % (AUTO) 0 % (0-10); HEMATOCRIT 29 % (35-52); HEMOGLOBIN 9.2 G/DL (11.5-16.0); LYMPHOCYTES # (AUTO) 1.7 X 10^3 (1.0-4.0); LYMPHOCYTES % (AUTO) 25 % (12-44); MEAN CORPUSCULAR HEMOGLOBIN 36 PG (25-34); MEAN CORPUSCULAR HGB CONC 32 G/DL (32-36); MEAN CORPUSCULAR VOLUME 112 FL (80-99); MEAN PLATELET VOLUME 11.6 FL (7.4-10.4); MONOCYTES # (AUTO) 1.2 X 10^3 (0.0-1.0); MONOCYTES % (AUTO) 17 % (0-12); NEUTROPHILS % (AUTO) 58 % (42-75); PLATELET COUNT 79 10^3/uL (130-400); RED CELL DISTRIBUTION WIDTH 13.8 % (10.0-14.5)
[2019-12-02 13:52] LABS: BUN/CREATININE RATIO 16; CALCIUM 9.2 MG/DL (8.5-10.1); CARBON DIOXIDE 24 MMOL/L (21-32); CHLORIDE 105 MMOL/L (98-107); CREATININE SERUM 0.85 MG/DL (0.60-1.30); GFR ESTIMATED > 60; GLUCOSE 131 MG/DL (70-105); POTASSIUM 3.7 MMOL/L (3.6-5.0); SODIUM 138 MMOL/L (135-145)
[2019-12-09 13:30] LABS: BASOPHILS % (AUTO) 0 % (0-10); EOSINOPHILS % (AUTO) 0 % (0-10); HEMATOCRIT 28 % (35-52); HEMOGLOBIN 9.1 G/DL (11.5-16.0); LYMPHOCYTES # (AUTO) 1.4 X 10^3 (1.0-4.0); LYMPHOCYTES % (AUTO) 21 % (12-44); MEAN CORPUSCULAR HEMOGLOBIN 37 PG (25-34); MEAN CORPUSCULAR HGB CONC 33 G/DL (32-36); MEAN CORPUSCULAR VOLUME 113 FL (80-99); MEAN PLATELET VOLUME 10.1 FL (7.4-10.4); MONOCYTES # (AUTO) 0.5 X 10^3 (0.0-1.0); MONOCYTES % (AUTO) 7 % (0-12); NEUTROPHILS # (AUTO) 4.9 X 10^3 (1.8-7.8); NEUTROPHILS % (AUTO) 72 % (42-75); PLATELET COUNT 109 10^3/uL (130-400); RED CELL DISTRIBUTION WIDTH 13.4 % (10.0-14.5); WHITE BLOOD COUNT 6.8 10^3/uL (4.3-11.0)
[2019-12-09 13:49] LABS: BUN/CREATININE RATIO 11; CALCIUM 8.9 MG/DL (8.5-10.1); CARBON DIOXIDE 28 MMOL/L (21-32); CHLORIDE 104 MMOL/L (98-107); CREATININE SERUM 0.75 MG/DL (0.60-1.30); GFR ESTIMATED > 60; GLUCOSE 94 MG/DL (70-105); POTASSIUM 3.5 MMOL/L (3.6-5.0); SODIUM 139 MMOL/L (135-145)
[~2020-01-19 13:17] MED LIST changes: +CARBOPLATIN IV SCH; +D5W IV SCH; +DOCETAXEL IV SCH; +FAMOTIDINE 20MG/2ML IV (CANCER CTR) IV SCH; +FOSAPREPITANT (CANCER CENTER) 150 MG in NS (IVPB) CANCER CENTER ONLY 150 ML IV SCH; +NORMAL SALINE IV SCH; +NS IV 1000 ML (CANCER CTR) IV SCH; +NS IV SCH; +PALONOSETRON HCL 0.25 MG, DEXAMETHASONE INJECTION 10 MG in NS (IVPB) CANCER CENTER 50 ML IV SCH; +PEGFILGRASTIM 6 MG/0.6ML NEULASTA SC SCH; +TRASTUZUMAB IV SCH; +diphenhydrAMINE 25 MG TAB (BENADRYL) CANCER CENTER PO SCH
== END 2020-02-09 | disposition home or self-care (01) ==
LOC: ONC 13:17
PROVIDERS: ATTEND Internal Medicine Hematology & Oncology
DX: Z51.11 Encounter for antineoplastic chemotherapy (principal); C50.512 Malignant neoplasm of lower-outer quadrant of left female breast; I10 Essential (primary) hypertension; M19.90 Unspecified osteoarthritis, unspecified site; Z85.3 Personal history of malignant neoplasm of breast
CPT/HCPCS: 36415; 36591; 80048; 80053; 85025; 96367; 96372; 96375; 96413; 96417; 99213

== ENCOUNTER 2020-05-04 13:43 | Outpatient (RCR) | payer MEDICARE, MEDICAID, OTHER ==
[2020-02-16 13:53] LABS: BASOPHILS % (AUTO) 1 % (0-10); EOSINOPHILS # (AUTO) 0.2 10^3/uL (0.0-0.3); EOSINOPHILS % (AUTO) 5 % (0-10); HEMATOCRIT 30 % (35-52); HEMOGLOBIN 9.6 G/DL (11.5-16.0); LYMPHOCYTES # (AUTO) 1.1 X 10^3 (1.0-4.0); LYMPHOCYTES % (AUTO) 31 % (12-44); MEAN CORPUSCULAR HEMOGLOBIN 34 PG (25-34); MEAN CORPUSCULAR HGB CONC 32 G/DL (32-36); MEAN CORPUSCULAR VOLUME 104 FL (80-99); MEAN PLATELET VOLUME 10.1 FL (7.4-10.4); MONOCYTES # (AUTO) 0.3 X 10^3 (0.0-1.0); MONOCYTES % (AUTO) 10 % (0-12); NEUTROPHILS # (AUTO) 1.9 X 10^3 (1.8-7.8); NEUTROPHILS % (AUTO) 54 % (42-75); PLATELET COUNT 158 10^3/uL (130-400); WHITE BLOOD COUNT 3.5 10^3/uL (4.3-11.0)
[2020-02-16 14:16] LABS: ALANINE AMINOTRANSFERASE 16 U/L (0-55); ALBUMIN 4.1 GM/DL (3.2-4.5); ALKALINE PHOSPHATASE 90 U/L (40-136); BILIRUBIN,TOTAL 0.2 MG/DL (0.1-1.0); BUN/CREATININE RATIO 13; CALCIUM 8.7 MG/DL (8.5-10.1); CARBON DIOXIDE 24 MMOL/L (21-32); CHLORIDE 108 MMOL/L (98-107); CREATININE SERUM 0.86 MG/DL (0.60-1.30); GFR ESTIMATED > 60; GLUCOSE 107 MG/DL (70-105); SODIUM 140 MMOL/L (135-145); TOTAL PROTEIN 6.6 GM/DL (6.4-8.2)
[2020-04-12 13:18] LABS: BASOPHILS % (AUTO) 1 % (0-10); EOSINOPHILS # (AUTO) 0.2 10^3/uL (0.0-0.3); EOSINOPHILS % (AUTO) 5 % (0-10); HEMATOCRIT 25 % (35-52); HEMOGLOBIN 8.3 G/DL (11.5-16.0); LYMPHOCYTES # (AUTO) 0.4 X 10^3 (1.0-4.0); LYMPHOCYTES % (AUTO) 11 % (12-44); MEAN CORPUSCULAR HEMOGLOBIN 31 PG (25-34); MEAN CORPUSCULAR HGB CONC 33 G/DL (32-36); MEAN CORPUSCULAR VOLUME 96 FL (80-99); MEAN PLATELET VOLUME 9.3 FL (7.4-10.4); MONOCYTES # (AUTO) 0.4 X 10^3 (0.0-1.0); MONOCYTES % (AUTO) 9 % (0-12); NEUTROPHILS % (AUTO) 75 % (42-75); PLATELET COUNT 183 10^3/uL (130-400)
[2020-04-12 13:37] LABS: ALANINE AMINOTRANSFERASE 18 U/L (0-55); ALBUMIN 4.1 GM/DL (3.2-4.5); ALKALINE PHOSPHATASE 82 U/L (40-136); BILIRUBIN,TOTAL 0.2 MG/DL (0.1-1.0); BUN/CREATININE RATIO 15; CALCIUM 8.7 MG/DL (8.5-10.1); CARBON DIOXIDE 26 MMOL/L (21-32); CHLORIDE 96 MMOL/L (98-107); CREATININE SERUM 0.88 MG/DL (0.60-1.30); GFR ESTIMATED > 60; GLUCOSE 142 MG/DL (70-105); POTASSIUM 3.6 MMOL/L (3.6-5.0); SODIUM 131 MMOL/L (135-145); TOTAL PROTEIN 6.6 GM/DL (6.4-8.2)
[~2020-05-04 13:43] MED LIST changes: -CARBOPLATIN IV SCH; -D5W IV SCH; -DOCETAXEL IV SCH; -FAMOTIDINE 20MG/2ML IV (CANCER CTR) IV SCH; -FOSAPREPITANT (CANCER CENTER) 150 MG in NS (IVPB) CANCER CENTER ONLY 150 ML IV SCH; -NORMAL SALINE IV SCH; -NS IV 1000 ML (CANCER CTR) IV SCH; -NS IV SCH; -PALONOSETRON HCL 0.25 MG, DEXAMETHASONE INJECTION 10 MG in NS (IVPB) CANCER CENTER 50 ML IV SCH; -PEGFILGRASTIM 6 MG/0.6ML NEULASTA SC SCH; -TRASTUZUMAB IV SCH; -diphenhydrAMINE 25 MG TAB (BENADRYL) CANCER CENTER PO SCH
[2020-05-04 13:59] LABS: BASOPHILS % (AUTO) 1 % (0-10); EOSINOPHILS # (AUTO) 0.1 10^3/uL (0.0-0.3); EOSINOPHILS % (AUTO) 3 % (0-10); HEMATOCRIT 24 % (35-52); HEMOGLOBIN 7.4 g/dL (11.5-16.0); LYMPHOCYTES # (AUTO) 0.6 10^3/uL (1.0-4.0); LYMPHOCYTES % (AUTO) 15 % (12-44); MEAN CORPUSCULAR HEMOGLOBIN 29 pg (25-34); MEAN CORPUSCULAR HGB CONC 31 g/dL (32-36); MEAN CORPUSCULAR VOLUME 95 fL (80-99); MEAN PLATELET VOLUME 9.6 fL (9.0-12.2); MONOCYTES # (AUTO) 0.5 10^3/uL (0.0-1.0); MONOCYTES % (AUTO) 12 % (0-12); NEUTROPHILS # (AUTO) 2.7 10^3/uL (1.8-7.8); NEUTROPHILS % (AUTO) 69 % (42-75); PLATELET COUNT 212 10^3/uL (130-400); WHITE BLOOD COUNT 3.9 10^3/uL (4.3-11.0)
[2020-05-04 14:22] LABS: ALANINE AMINOTRANSFERASE 18 U/L (0-55); ALBUMIN 4.1 GM/DL (3.2-4.5); ALKALINE PHOSPHATASE 84 U/L (40-136); BILIRUBIN,TOTAL 0.2 MG/DL (0.1-1.0); BUN/CREATININE RATIO 16; CALCIUM 8.9 MG/DL (8.5-10.1); CARBON DIOXIDE 23 MMOL/L (21-32); CHLORIDE 98 MMOL/L (98-107); CREATININE SERUM 0.89 MG/DL (0.60-1.30); GFR ESTIMATED > 60; GLUCOSE 109 MG/DL (70-105); POTASSIUM 3.9 MMOL/L (3.6-5.0); SODIUM 133 MMOL/L (135-145); TOTAL PROTEIN 6.6 GM/DL (6.4-8.2)
== END 2020-05-10 | disposition home or self-care (01) ==
LOC: ONC 13:43
PROVIDERS: ATTEND Internal Medicine Hematology & Oncology
DX: C50.512 Malignant neoplasm of lower-outer quadrant of left female breast (principal); I10 Essential (primary) hypertension; M19.90 Unspecified osteoarthritis, unspecified site; E78.00 Pure hypercholesterolemia, unspecified; J98.4 Other disorders of lung; E04.1 Nontoxic single thyroid nodule; Z90.12 Acquired absence of left breast and nipple; Z92.21 Personal history of antineoplastic chemotherapy
CPT/HCPCS: 36591; 80053; 82728; 83540; 85025; 99204; 99214

== ENCOUNTER → 2020-07-07 | Outpatient (CLI) | payer MEDICAID, MEDICARE ==
[~2020-07-07] MED LIST changes: +CATHETER FLUSH 10 ML SYR IV PRN; +HOLD METFORMIN - RECEIVED CONTRAST 20 ML VIAL IV SCH; +IOHEXOL 350 MG/ML 100 ML (OMNIPAQUE 350) VIAL IV ONE; +NS 100 ML (IVPB) BAG IV ONE
--- NOTE | 2020-07-07 11:30 | Diagnostic Imaging Report ---
EXAM: CT of the neck and chest with contrast. INDICATION: Malignant neoplasm lung and thyroid Contiguous axial sections were taken from the mid portion of the skull to the upper abdomen. Intravenous contrast was administered. COMPARISON: There are no prior CT neck examinations available for comparison. The CT chest, abdomen and pelvis exam of 07/16/2019 noted an irregular mass in the lateral aspect of the left breast. By history, the patient does have a diagnosis of breast cancer. There are also mildly prominent left axillary nodes. On this exam, the mass involving the left breast seen previously is not identified. There is a spiculated 1.3 x 2.7 cm density within the central portion of the left breast. This may represent scar formation. Recurrent neoplasm cannot be entirely excluded on the basis of this exam alone. The mildly prominent lymph nodes in the left axilla seen previously are no longer visualized. However, there is now a somewhat thick-walled 2.8 x 4.2 cm fluid collection in the left axilla. I suspect this is a hematoma/seroma. If further study is desired, ultrasound would be recommended. The previous CT chest exam also identified a semisolid 6 mm density in the right upper lobe. That finding is again evident and does not appear to have changed significantly. If anything, it is slightly smaller than on the prior exam (image 65 of 152). There is no other parenchymal lung mass identified. However in the interval since the prior study, a patchy alveolar/interstitial infiltrate has developed along the periphery of the left upper lung. This finding is most likely due to a pneumonia / atelectasis. There are a few areas of increased density amidst these alveolar/interstitial infiltrates which could be neoplastic in nature. I feel that is unlikely, however. Even so, a short-term (4-6 week) follow-up CT chest exam would be recommended for further evaluation. The heart size is within normal limits. There are coronary artery calcifications evident. The aorta is not abnormally dilated and there is no sign of a dissection. There is no defect within the pulmonary arteries to indicate a pulmonary embolus. There is now a Port-A-Cath in place on the right with the tip of the catheter in the midportion of the superior vena cava. The previous CT chest exam also identified a low density nodule in the left lobe of the thyroid. This nodule is also identified on the prior thyroid ultrasound exam of 07/28/2019. The nodule does not seem to have changed significantly since the prior exam. There is no mass or adenopathy involving the neck. The tracheal air shadow is not compressed or deviated. The intracranial contents, where visualized, are unremarkable. The prior exam revealed a mild 10-20% compression deformity of the superior endplate of T11. That finding is again evident and no different. However, in the interval since the prior study, a 50-60% compression deformity of the anterior half of the vertebral body of L1 has developed and may well be chronic in nature. The possibility of a subacute compression deformity should still be considered. If further imaging is desired, then MRI would be recommended. The bone windows show no sign of a fracture or of a destructive lesion otherwise. The sections through the upper abdomen failed to show any sign of an acute abnormality. IMPRESSION: 1. The mass involving the left breast seen previously is no longer evident. The spiculated density in the central portion of the breast may be related to scar formation alone. The possibility that there is recurrent/residual neoplasm in this area cannot be entirely excluded. If further imaging is desired, then MRI of the breast would be recommended. 2. The mildly prominent left axillary lymph nodes seen previously are no longer evident. However, there now appears to be a 2.8 x 4.2 cm hematoma/seroma in the left axilla. 3. The small nodular density in the right upper lobe seen previously appears stable and is most likely benign. 4. Mild pneumonia/atelectasis has developed along the periphery of the left upper lung. There is no evidence for an underlying neoplastic mass in this area but a follow-up CT chest exam in 4-6 weeks would be recommended for further study. 5. There is no acute cardiopulmonary abnormality noted otherwise. 6. The low density nodule in the inferior pole of the left lobe of the thyroid seen previously is again evident and does not appear to have changed significantly. This finding is most likely a benign process. If a tissue diagnosis is desired however, then, an ultrasound-guided biopsy should be considered. 7. In the interval since the prior exam, a 50-60% compression fracture of L1 has developed. This finding could be subacute in nature. Recommendations as above. Dictated by: Dictated on workstation # [id number]
== END ==
LOC: RAD 09:30
PROVIDERS: ATTEND Internal Medicine Hematology & Oncology
DX: C50.519 Malignant neoplasm of lower-outer quadrant of unspecified female breast (principal); E04.1 Nontoxic single thyroid nodule; R91.1 Solitary pulmonary nodule
CPT/HCPCS: 70491; 71260

== ENCOUNTER 2020-07-12 13:22 | Outpatient (RCR) | payer MEDICARE, MEDICAID, OTHER ==
[2020-06-14 11:16] LABS: BASOPHILS # (AUTO) 0.1 10^3/uL (0.0-0.1); BASOPHILS % (AUTO) 2 % (0-10); EOSINOPHILS # (AUTO) 0.3 10^3/uL (0.0-0.3); EOSINOPHILS % (AUTO) 10 % (0-10); HEMATOCRIT 27 % (35-52); HEMOGLOBIN 8.2 g/dL (11.5-16.0); LYMPHOCYTES # (AUTO) 0.5 10^3/uL (1.0-4.0); LYMPHOCYTES % (AUTO) 17 % (12-44); MEAN CORPUSCULAR HEMOGLOBIN 30 pg (25-34); MEAN CORPUSCULAR HGB CONC 31 g/dL (32-36); MEAN CORPUSCULAR VOLUME 97 fL (80-99); MEAN PLATELET VOLUME 9.4 fL (9.0-12.2); MONOCYTES # (AUTO) 0.4 10^3/uL (0.0-1.0); MONOCYTES % (AUTO) 13 % (0-12); NEUTROPHILS # (AUTO) 1.9 10^3/uL (1.8-7.8); NEUTROPHILS % (AUTO) 58 % (42-75); PLATELET COUNT 196 10^3/uL (130-400); WHITE BLOOD COUNT 3.2 10^3/uL (4.3-11.0)
[2020-06-14 11:37] LABS: ALBUMIN 4.1 GM/DL (3.2-4.5); BILIRUBIN,TOTAL 0.2 MG/DL (0.1-1.0); CALCIUM 9.5 MG/DL (8.5-10.1); CREATININE SERUM 0.96 MG/DL (0.60-1.30); POTASSIUM 3.8 MMOL/L (3.6-5.0); TOTAL PROTEIN 6.5 GM/DL (6.4-8.2)
[~2020-07-12] VITALS: Ht 162.6 cm; Wt 61.7 kg
[~2020-07-12 13:22] MED LIST changes: +ACETAMINOPHEN 500 MG TAB (TYLENOL) CANCER CTR ONE; +ACETAMINOPHEN 500 MG TAB (TYLENOL) CANCER CTR PO PRN; -CATHETER FLUSH 10 ML SYR IV PRN; +FAMOTIDINE 20MG/2ML IV (CANCER CTR) IV SCH; +FAMOTIDINE 20MG/2ML IV (CANCER CTR) ONE; -HOLD METFORMIN - RECEIVED CONTRAST 20 ML VIAL IV SCH; -IOHEXOL 350 MG/ML 100 ML (OMNIPAQUE 350) VIAL IV ONE; -NS 100 ML (IVPB) BAG IV ONE; +NS IV 1000 ML (CANCER CTR) IV SCH; +NS IV SCH; +TRASTUZUMAB ANNS IV SCH; +diphenhydrAMINE 25 MG TAB (BENADRYL) CANCER CENTER PO ONE; +diphenhydrAMINE 25 MG TAB (BENADRYL) CANCER CENTER PO SCH
[2020-07-12 13:54] LABS: BASOPHILS % (AUTO) 1 % (0-10); EOSINOPHILS # (AUTO) 0.1 10^3/uL (0.0-0.3); EOSINOPHILS % (AUTO) 3 % (0-10); HEMATOCRIT 26 % (35-52); HEMOGLOBIN 8.2 g/dL (11.5-16.0); LYMPHOCYTES # (AUTO) 0.7 10^3/uL (1.0-4.0); LYMPHOCYTES % (AUTO) 14 % (12-44); MEAN CORPUSCULAR HEMOGLOBIN 30 pg (25-34); MEAN CORPUSCULAR HGB CONC 31 g/dL (32-36); MEAN CORPUSCULAR VOLUME 96 fL (80-99); MEAN PLATELET VOLUME 9.8 fL (9.0-12.2); MONOCYTES # (AUTO) 0.4 10^3/uL (0.0-1.0); MONOCYTES % (AUTO) 8 % (0-12); NEUTROPHILS # (AUTO) 3.7 10^3/uL (1.8-7.8); NEUTROPHILS % (AUTO) 75 % (42-75); PLATELET COUNT 253 10^3/uL (130-400)
[2020-07-12 14:12] LABS: ALANINE AMINOTRANSFERASE 16 U/L (0-55); ALBUMIN 3.9 GM/DL (3.2-4.5); ALKALINE PHOSPHATASE 98 U/L (40-136); BILIRUBIN,TOTAL 0.1 MG/DL (0.1-1.0); BUN/CREATININE RATIO 13; CALCIUM 9.3 MG/DL (8.5-10.1); CARBON DIOXIDE 25 MMOL/L (21-32); CHLORIDE 100 MMOL/L (98-107); CREATININE SERUM 0.87 MG/DL (0.60-1.30); GFR ESTIMATED > 60; GLUCOSE 122 MG/DL (70-105); POTASSIUM 3.7 MMOL/L (3.6-5.0); SODIUM 136 MMOL/L (135-145); TOTAL PROTEIN 6.8 GM/DL (6.4-8.2)
== END 2020-08-01 15:30 | disposition home or self-care (01) ==
LOC: ONC 13:22
PROVIDERS: ATTEND Internal Medicine Hematology & Oncology
DX: C50.512 Malignant neoplasm of lower-outer quadrant of left female breast (principal); I10 Essential (primary) hypertension; M19.90 Unspecified osteoarthritis, unspecified site; E78.00 Pure hypercholesterolemia, unspecified; J98.4 Other disorders of lung; E04.1 Nontoxic single thyroid nodule; Z90.12 Acquired absence of left breast and nipple; Z92.21 Personal history of antineoplastic chemotherapy
CPT/HCPCS: 36591; 80053; 82728; 83540; 85025; 96375; 96413; 99213

== ENCOUNTER → 2020-10-24 | Outpatient (CLI) | payer MEDICARE, OTHER ==
[~2020-10-24] MED LIST changes: -ACETAMINOPHEN 500 MG TAB (TYLENOL) CANCER CTR ONE; -ACETAMINOPHEN 500 MG TAB (TYLENOL) CANCER CTR PO PRN; +CATHETER FLUSH 10 ML SYR IV PRN; -FAMOTIDINE 20MG/2ML IV (CANCER CTR) IV SCH; -FAMOTIDINE 20MG/2ML IV (CANCER CTR) ONE; +HEParin (CENTRAL IV FLUSH) 500 UNIT/5 ML SYR ONE; -LISI10TA2 PO; +LISI10TA25 PO; -NS IV 1000 ML (CANCER CTR) IV SCH; -NS IV SCH; -TRASTUZUMAB ANNS IV SCH; -diphenhydrAMINE 25 MG TAB (BENADRYL) CANCER CENTER PO ONE; -diphenhydrAMINE 25 MG TAB (BENADRYL) CANCER CENTER PO SCH
--- NOTE | 2020-10-24 18:29 | Diagnostic Imaging Report ---
EXAM: MUGA scan INDICATION: Encounter for anti-neoplastic This study was performed following administration of 29.3 mCi of tagged red blood cells. There are no prior studies available for comparison. There is generalized distribution of the radiotracer throughout the heart. The ejection fraction is 55%. IMPRESSION: The ejection fraction is 55%. Dictated by: Dictated on workstation # [id number]
== END ==
LOC: CARD 13:33
PROVIDERS: ATTEND Internal Medicine Hematology & Oncology
DX: Z51.11 Encounter for antineoplastic chemotherapy (principal)
CPT/HCPCS: 78472; A9560

== ENCOUNTER → 2020-11-01 | Outpatient (RCR) | payer MEDICARE, OTHER ==
[2020-08-24 13:26] LABS: BASOPHILS % (AUTO) 1 % (0-10); EOSINOPHILS # (AUTO) 0.1 10^3/uL (0.0-0.3); EOSINOPHILS % (AUTO) 3 % (0-10); HEMATOCRIT 27 % (35-52); HEMOGLOBIN 8.3 g/dL (11.5-16.0); LYMPHOCYTES # (AUTO) 0.8 10^3/uL (1.0-4.0); LYMPHOCYTES % (AUTO) 19 % (12-44); MEAN CORPUSCULAR HEMOGLOBIN 30 pg (25-34); MEAN CORPUSCULAR HGB CONC 31 g/dL (32-36); MEAN CORPUSCULAR VOLUME 97 fL (80-99); MEAN PLATELET VOLUME 9.6 fL (9.0-12.2); MONOCYTES # (AUTO) 0.4 10^3/uL (0.0-1.0); MONOCYTES % (AUTO) 10 % (0-12); NEUTROPHILS # (AUTO) 2.8 10^3/uL (1.8-7.8); NEUTROPHILS % (AUTO) 68 % (42-75); PLATELET COUNT 147 10^3/uL (130-400); WHITE BLOOD COUNT 4.2 10^3/uL (4.3-11.0)
[2020-08-24 13:45] LABS: ALBUMIN 3.9 GM/DL (3.2-4.5); BILIRUBIN,TOTAL 0.2 MG/DL (0.1-1.0); CALCIUM 9.3 MG/DL (8.5-10.1); CREATININE SERUM 0.98 MG/DL (0.60-1.30); TOTAL PROTEIN 6.8 GM/DL (6.4-8.2)
[2020-10-10 14:06] LABS: BASOPHILS # (AUTO) 0.1 10^3/uL (0.0-0.1); BASOPHILS % (AUTO) 1 % (0-10); EOSINOPHILS # (AUTO) 0.3 10^3/uL (0.0-0.3); EOSINOPHILS % (AUTO) 7 % (0-10); HEMATOCRIT 29 % (35-52); LYMPHOCYTES # (AUTO) 0.8 10^3/uL (1.0-4.0); LYMPHOCYTES % (AUTO) 18 % (12-44); MEAN CORPUSCULAR HEMOGLOBIN 29 pg (25-34); MEAN CORPUSCULAR HGB CONC 31 g/dL (32-36); MEAN CORPUSCULAR VOLUME 96 fL (80-99); MONOCYTES # (AUTO) 0.5 10^3/uL (0.0-1.0); MONOCYTES % (AUTO) 11 % (0-12); NEUTROPHILS # (AUTO) 2.9 10^3/uL (1.8-7.8); NEUTROPHILS % (AUTO) 63 % (42-75); PLATELET COUNT 178 10^3/uL (130-400); WHITE BLOOD COUNT 4.6 10^3/uL (4.3-11.0)
[2020-10-10 14:25] LABS: BILIRUBIN,TOTAL 0.3 MG/DL (0.1-1.0); CALCIUM 9.2 MG/DL (8.5-10.1); CREATININE SERUM 0.94 MG/DL (0.60-1.30); POTASSIUM 3.8 MMOL/L (3.6-5.0); TOTAL PROTEIN 6.7 GM/DL (6.4-8.2)
[~2020-11-01] MED LIST changes: +ACETAMINOPHEN 500 MG TAB (TYLENOL) CANCER CTR PO PRN; -CATHETER FLUSH 10 ML SYR IV PRN; +FAMOTIDINE 20MG/2ML IV (CANCER CTR) IV SCH; -HEParin (CENTRAL IV FLUSH) 500 UNIT/5 ML SYR ONE; +NS IV 1000 ML (CANCER CTR) IV SCH; +NS IV SCH; +TRASTUZUMAB ANNS IV SCH; +TRASTUZUMAB PKRB IV SCH; +diphenhydrAMINE 25 MG TAB (BENADRYL) CANCER CENTER PO SCH
== END | disposition home or self-care (01) ==
LOC: ONC 08-03 13:56
PROVIDERS: ATTEND Internal Medicine Hematology & Oncology
DX: C50.512 Malignant neoplasm of lower-outer quadrant of left female breast (principal); I10 Essential (primary) hypertension; M19.90 Unspecified osteoarthritis, unspecified site; E78.00 Pure hypercholesterolemia, unspecified; J98.4 Other disorders of lung; E04.1 Nontoxic single thyroid nodule; Z90.12 Acquired absence of left breast and nipple; Z92.21 Personal history of antineoplastic chemotherapy
CPT/HCPCS: 36415; 36591; 80053; 82728; 83540; 84443; 85025; 96413

== ENCOUNTER 2021-01-24 12:35 | Outpatient (RCR) | payer MEDICARE, OTHER ==
[2020-11-23 13:13] LABS: BASOPHILS % (AUTO) 1 % (0-10); EOSINOPHILS # (AUTO) 0.2 10^3/uL (0.0-0.3); EOSINOPHILS % (AUTO) 4 % (0-10); HEMATOCRIT 33 % (35-52); HEMOGLOBIN 10.5 g/dL (11.5-16.0); LYMPHOCYTES # (AUTO) 0.8 10^3/uL (1.0-4.0); LYMPHOCYTES % (AUTO) 16 % (12-44); MEAN CORPUSCULAR HEMOGLOBIN 31 pg (25-34); MEAN CORPUSCULAR HGB CONC 32 g/dL (32-36); MEAN CORPUSCULAR VOLUME 96 fL (80-99); MEAN PLATELET VOLUME 10.5 fL (9.0-12.2); MONOCYTES # (AUTO) 0.5 10^3/uL (0.0-1.0); MONOCYTES % (AUTO) 10 % (0-12); NEUTROPHILS # (AUTO) 3.2 10^3/uL (1.8-7.8); NEUTROPHILS % (AUTO) 69 % (42-75); PLATELET COUNT 159 10^3/uL (130-400); WHITE BLOOD COUNT 4.7 10^3/uL (4.3-11.0)
[2020-11-23 13:36] LABS: ALBUMIN 4.1 GM/DL (3.2-4.5); BILIRUBIN,TOTAL 0.2 MG/DL (0.1-1.0); CALCIUM 9.3 MG/DL (8.5-10.1); CREATININE SERUM 0.93 MG/DL (0.60-1.30); TOTAL PROTEIN 6.8 GM/DL (6.4-8.2)
[2021-01-03 13:09] LABS: BASOPHILS # (AUTO) 0.1 10^3/uL (0.0-0.1); BASOPHILS % (AUTO) 1 % (0-10); EOSINOPHILS # (AUTO) 0.2 10^3/uL (0.0-0.3); EOSINOPHILS % (AUTO) 5 % (0-10); HEMATOCRIT 32 % (35-52); HEMOGLOBIN 10.5 g/dL (11.5-16.0); LYMPHOCYTES # (AUTO) 0.8 10^3/uL (1.0-4.0); LYMPHOCYTES % (AUTO) 18 % (12-44); MEAN CORPUSCULAR HEMOGLOBIN 31 pg (25-34); MEAN CORPUSCULAR HGB CONC 33 g/dL (32-36); MEAN CORPUSCULAR VOLUME 94 fL (80-99); MEAN PLATELET VOLUME 10.7 fL (9.0-12.2); MONOCYTES # (AUTO) 0.4 10^3/uL (0.0-1.0); MONOCYTES % (AUTO) 9 % (0-12); NEUTROPHILS # (AUTO) 2.9 10^3/uL (1.8-7.8); NEUTROPHILS % (AUTO) 67 % (42-75); PLATELET COUNT 151 10^3/uL (130-400); WHITE BLOOD COUNT 4.3 10^3/uL (4.3-11.0)
[2021-01-03 13:27] LABS: ALBUMIN 3.9 GM/DL (3.2-4.5); BILIRUBIN,TOTAL 0.3 MG/DL (0.1-1.0); CALCIUM 9.7 MG/DL (8.5-10.1); CREATININE SERUM 1.07 MG/DL (0.60-1.30); POTASSIUM 3.9 MMOL/L (3.6-5.0); TOTAL PROTEIN 6.6 GM/DL (6.4-8.2)
[~2021-01-24 12:35] MED LIST changes: -TRASTUZUMAB ANNS IV SCH
== END 2021-02-21 | disposition home or self-care (01) ==
LOC: ONC 12:35
PROVIDERS: ATTEND Internal Medicine Hematology & Oncology
DX: C50.512 Malignant neoplasm of lower-outer quadrant of left female breast (principal); I10 Essential (primary) hypertension; M19.90 Unspecified osteoarthritis, unspecified site; E78.00 Pure hypercholesterolemia, unspecified; J98.4 Other disorders of lung; D64.9 Anemia, unspecified; E04.1 Nontoxic single thyroid nodule; Z90.12 Acquired absence of left breast and nipple; Z92.21 Personal history of antineoplastic chemotherapy
CPT/HCPCS: 80053; 82728; 83540; 83550; 85025; 96413; G0463; 36591

== ENCOUNTER → 2021-02-14 | Outpatient (CLI) | payer MEDICARE ==
[~2021-02-14] MED LIST changes: -ACETAMINOPHEN 500 MG TAB (TYLENOL) CANCER CTR PO PRN; +CATHETER FLUSH 10 ML SYR IV PRN; -FAMOTIDINE 20MG/2ML IV (CANCER CTR) IV SCH; +HEParin (CENTRAL IV FLUSH) 500 UNIT/5 ML SYR ONE; -NS IV 1000 ML (CANCER CTR) IV SCH; -NS IV SCH; -TRASTUZUMAB PKRB IV SCH; -diphenhydrAMINE 25 MG TAB (BENADRYL) CANCER CENTER PO SCH
--- NOTE | 2021-02-15 13:27 | Diagnostic Imaging Report ---
Indication: Chemotherapy patient Patient's red blood cells were tagged labeled with 29.5 mCi technetium 99m Pertechnetate and reinjected and gated 1st pass left ventriculography performed. Left ventricular ejection fraction is 54%, previously 55%. Impression: Left ventricular ejection fraction of 54% not significantly changed from prior. Dictated by: Dictated on workstation # [id number]
== END ==
LOC: CARD 14:00
PROVIDERS: ATTEND Internal Medicine Hematology & Oncology
DX: Z51.81 Encounter for therapeutic drug level monitoring (principal); Z51.11 Encounter for antineoplastic chemotherapy; C50.519 Malignant neoplasm of lower-outer quadrant of unspecified female breast; Z79.899 Other long term (current) drug therapy
CPT/HCPCS: 78472; A9560

== ENCOUNTER 2021-05-24 12:08 | Outpatient (RCR) | payer MEDICARE, OTHER ==
[2021-02-27 13:17] LABS: BASOPHILS # (AUTO) 0.1 10^3/uL (0.0-0.1); BASOPHILS % (AUTO) 2 % (0-10); EOSINOPHILS # (AUTO) 0.4 10^3/uL (0.0-0.3); EOSINOPHILS % (AUTO) 8 % (0-10); HEMATOCRIT 34 % (35-52); HEMOGLOBIN 11.3 g/dL (11.5-16.0); LYMPHOCYTES # (AUTO) 0.9 10^3/uL (1.0-4.0); LYMPHOCYTES % (AUTO) 17 % (12-44); MEAN CORPUSCULAR HEMOGLOBIN 31 pg (25-34); MEAN CORPUSCULAR HGB CONC 34 g/dL (32-36); MEAN CORPUSCULAR VOLUME 94 fL (80-99); MEAN PLATELET VOLUME 10.8 fL (9.0-12.2); MONOCYTES # (AUTO) 0.4 10^3/uL (0.0-1.0); MONOCYTES % (AUTO) 8 % (0-12); NEUTROPHILS # (AUTO) 3.4 10^3/uL (1.8-7.8); NEUTROPHILS % (AUTO) 65 % (42-75); PLATELET COUNT 149 10^3/uL (130-400); WHITE BLOOD COUNT 5.2 10^3/uL (4.3-11.0)
[2021-02-27 13:42] LABS: ALBUMIN 3.9 GM/DL (3.2-4.5); BILIRUBIN,TOTAL 0.4 MG/DL (0.1-1.0); CALCIUM 9.5 MG/DL (8.5-10.1); CREATININE SERUM 1.03 MG/DL (0.60-1.30); POTASSIUM 3.8 MMOL/L (3.6-5.0); TOTAL PROTEIN 6.8 GM/DL (6.4-8.2)
[~2021-05-24 12:08] MED LIST changes: -CATHETER FLUSH 10 ML SYR IV PRN; -HEParin (CENTRAL IV FLUSH) 500 UNIT/5 ML SYR ONE
== END 2021-05-28 | disposition home or self-care (01) ==
LOC: ONC 12:08
PROVIDERS: ATTEND Internal Medicine Hematology & Oncology
DX: C50.512 Malignant neoplasm of lower-outer quadrant of left female breast (principal); I10 Essential (primary) hypertension; E78.00 Pure hypercholesterolemia, unspecified; J98.4 Other disorders of lung; D64.9 Anemia, unspecified; E04.1 Nontoxic single thyroid nodule; Z90.12 Acquired absence of left breast and nipple; Z92.21 Personal history of antineoplastic chemotherapy
CPT/HCPCS: 80053; 85025; G0463; 36591; 96523

== ENCOUNTER 2021-06-01 05:33 | Outpatient (CLI) | payer MEDICARE ==
[~2021-06-01] VITALS: Ht 162.6 cm; Wt 63.1 kg
[2021-06-01] MEDS ORDERED: BIOT50002 SL (11:29)
[2021-06-01] MEDS ORDERED: MULT-974 PO (11:29)
[2021-06-01] MEDS ORDERED: CARV6.252 PO (11:29)
[2021-06-01] MEDS ORDERED: OMEP40CA6 PO (11:29)
[2021-06-01] MEDS ORDERED: METF-397 PO (11:29)
== END 2021-06-01 11:54 | disposition home or self-care (01) ==
LOC: PREOP 05:33
PROVIDERS: ATTEND Surgery
DX: Z01.818 Encounter for other preprocedural examination (principal)

== ENCOUNTER 2021-06-08 09:24 | Day surgery (SDC) | payer MEDICARE ==
[2021-06-08] VITALS (7 sets, daily range): BP systolic 122–163; BP diastolic 65–89
[~2021-06-08] VITALS: Ht 162 cm; Wt 63.1 kg
[~2021-06-08 09:24] MED LIST changes: +BIOT50002 SL; +CARV6.252 PO; +METF-397 PO; +MULT-974 PO; +OMEP40CA6 PO
[2021-06-08] MEDS ORDERED: ceFAZolin INJECTION 1,000 MG ONE (09:45)
[2021-06-08] MEDS ORDERED: WATER (STERILE) FOR INJECTION 10 ML ONE (09:45)
[2021-06-08] MEDS ORDERED: LACTATED RINGERS 1,000 ML IV PRN (10:15)
[2021-06-08] MEDS ORDERED: ceFAZolin INJECTION 1,000 MG in WATER (STERILE) FOR INJECTION 10 ML IV ONE (10:15)
[2021-06-08] MEDS ORDERED: LIDOCAINE/EPI 1%-1:100,000 (XYLOCAINE) 20ML ONE ×2 (10:26→13:54)
[2021-06-08] MEDS ORDERED: ceFAZolin INJECTION 1,000 MG VIAL IV ONE (11:00)
--- NOTE | 2021-06-08 11:58 | Progress Note-Pre Operative ---
Pre-Operative Progress Note H&P Reviewed The H&P was reviewed, patient examined and no changes noted. Date Seen by Provider: Jun 08, 2021 Time Seen by Provider: 11:57 Date H&P Reviewed: Jun 08, 2021 Time H&P Reviewed: 11:57 Pre-Operative Diagnosis: history breast cancer JORGE JONES DO Jun 08, 2021 11:58
[2021-06-08] MEDS ORDERED: MIDAZOLAM 2 MG/2 ML (VERSED) VIAL ONE (13:00)
[2021-06-08] MEDS ORDERED: proPOfol 200 MG/20 ML (DIPRIVAN) VIAL IV ONE (13:00)
[2021-06-08] MEDS ORDERED: ONDANSETRON 4 MG/2 ML (SDV) Z0FRAN IVP PRN (13:45)
[2021-06-08] MEDS ORDERED: HYDROmorphone 2 MG/ML VIAL (DILAUDID) IV ONE (13:45)
--- NOTE | 2021-06-08 14:10 | Discharge Inst-Simple/Standard ---
Discharge Inst-Standard Patient Instructions/Follow Up Plan of Care/Instructions/FU: 2 weeks Jackie Activity as Tolerated: No Discharge Diet: Regular Diet Other Inst to Patient Follow up Appt: Make appointment for 2 week. Instructions: No lifting greater than 10 pounds. No strenuous activity. May shower in 24 hours, no tub bath or soaking. Use incentive spirometer at home as directed. No Smoking Skin/Wound Care: You have special glue over your incision that will fall off on it's own. Symptoms to Report: Appetite Changes, Extremity Discoloration, Numbness/Tingling, Swelling Increased, Bleeding Excessive, Eyesight Changes, Pain Increased, Urine Color Change, Constipation(Persistent), Fever over 101 degree F, Pain/Pressure in chest, Urinating Difficulty, Cough Up/Vomit Blood, Heart Beat Irreg/Pounding, Pain/Pressure in jaw, Vaginal Bleeding Increase, Cramps in feet or legs, Lightheadedness, Pain/Pressure in shoulder, Diarrhea(Persistent), Memory Changes Suddenly, Questions/Concerns, Weight gain consecutive days, Dizziness/Fainting, Nausea/Vomiting, Shortness of Breath, Weight gain over 2 pounds If questions or concerns contact your physician Or seek help at emergency department. JORGE JONES DO Jun 08, 2021 14:10
--- NOTE | 2021-06-08 14:11 | Progress Note-Post Operative ---
Post-Operative Progess Note Surgeon (s)/Bumper Machine Operator (s) Surgeon JORGE JONES DO Bumper Machine Operator: na Pre-Operative Diagnosis history breast cancer Post-Operative Diagnosis same Procedure & Operative Findings Date of Procedure 06/08/21 Procedure Performed/Findings PROCEDURE: Removal of port, COMPLICATIONS: None. INDICATIONS: The patient is a 76 year-old female who had a port previously placed. Patient is ok to have port removed. The patient was explained risk and benefits of the procedure and wished to proceed with procedure. Consent was signed on the chart. PROCEDURE: The patient was taken to the operating suite and was prepped and draped in sterile fashion. A surgical pause was performed. Local anesthetic was infiltrated to the area around the port. A number 15 blade scalpel was used to make an incision. Cautery was used to dissect down to the port which was then grasped and then dissected around. The catheter was removed in its entirety. The port was then able to be dissected out of the pocket and elevated. The wound was then irrigated with copious amounts of irrigation. Hemostasis had been achieved. The subcutaneous tissues were then reapproximated using 3-0 Vicryl. The area was then washed and dried and Skin Affix placed over the incision. The patient tolerated the procedure well without complication and was taken to recovery room in stable condition. Anesthesia Type general Estimated Blood Loss Estimated blood loss (mL): minimal Specimens/Packing Specimens Removed none JORGE JONES DO Jun 08, 2021 14:11
--- NOTE | 2021-06-08 14:47 | Anesthesia-General Post-Op ---
MAC Patient Condition Mental Status/LOC: Same as Preop Cardiovascular: Satisfactory Nausea/Vomiting: Absent Respiratory: Satisfactory Pain: Controlled Complications: Absent Post Op Complications Complications None Follow Up Care/Instructions Patient Instructions None needed. Anesthesiology Discharge Order Discharge Order Patient is doing well, no complaints, stable vital signs, no apparent adverse anesthesia problems. No complications reported per nursing. ALINE NAVA CRNA Jun 08, 2021 14:47
== END 2021-06-08 14:30 | disposition home or self-care (01) ==
LOC: SDC 09:24
PROVIDERS: ATTEND Surgery
DX: Z45.2 Encounter for adjustment and management of vascular access device (principal); Z85.3 Personal history of malignant neoplasm of breast; E78.00 Pure hypercholesterolemia, unspecified; I10 Essential (primary) hypertension; E78.5 Hyperlipidemia, unspecified; K21.9 Gastro-esophageal reflux disease without esophagitis; E11.9 Type 2 diabetes mellitus without complications; Z79.899 Other long term (current) drug therapy; Z79.84 Long term (current) use of oral hypoglycemic drugs; Z11.2 Encounter for screening for other bacterial diseases; Z87.891 Personal history of nicotine dependence
CPT/HCPCS: 82947; 87081

== ENCOUNTER 2021-06-13 06:11 | Outpatient (CLI) | payer MEDICARE ==
[~2021-06-13] VITALS: Ht 162.6 cm; Wt 63.6 kg
[~2021-06-13 06:11] MED LIST changes: +BIOT50002 PO; -BIOT50002 SL
[2021-06-13] MEDS ORDERED: FERR160T5 PO (13:34)
[2021-06-13] MEDS ORDERED: CALC-69 PO (13:34)
== END 2021-06-13 13:36 | disposition home or self-care (01) ==
LOC: PREOP 06:11
PROVIDERS: ATTEND Specialist
DX: Z01.818 Encounter for other preprocedural examination (principal)

== ENCOUNTER 2021-06-16 09:27 | Day surgery (SDC) | payer MEDICARE ==
[~2021-06-16] VITALS: Ht 162.6 cm; Wt 63.6 kg
[~2021-06-16 09:27] MED LIST changes: +CALC-69 PO; +FERR160T5 PO
[2021-06-16] MEDS: TETRACAINE 0.5% OPHTH SOLN 4 ML BTL (SINGLE DOSE ONLY) OU PRN ×4 (09:42→10:00)
[2021-06-16] MEDS ORDERED: MOXIFLOXACIN OPHTH SOLN 5 MG/ML 0.3 ML SYRINGE OP ONE (09:45)
[2021-06-16] MEDS ORDERED: TIMOLOL MALEATE 0.5% 5 ML (TIMOPTIC) BTL OU PRN (09:45)
[2021-06-16] MEDS ORDERED: POVIDONE (BETADINE) OPHTH SOLN 5% 30 ML OP ONE (09:45)
[2021-06-16] MEDS ORDERED: LIDOCAINE PF 1% 2 ML VIAL IR PRN (09:45)
[2021-06-16 09:48] VITALS: BP 162/78
[2021-06-16] MEDS: TROPICAMIDE 1% OPH SOLN (MYDRIACYL) 15 ML BTL OP SCH ×3 (09:50→10:00)
[2021-06-16] MEDS: PHENYLEPHRINE 10% OPHTH (NEO-SYN) 5 ML BTL OU SCH ×3 (09:50→10:00)
[2021-06-16] MEDS ORDERED: MIDAZOLAM 2 MG/2 ML (VERSED) VIAL ONE (09:52)
--- NOTE | 2021-06-16 10:11 | Ophthalmologist Pre-Op Note ---
Pre-Operative Progress Note H&P Reviewed The H&P was reviewed, patient examined and no changes noted. Date H&P Reviewed: Jun 16, 2021 Time H&P Reviewed: 10:10 Pre-Op Dx Cataract, Right Eye SHARI HARDING MD Jun 16, 2021 10:10
--- NOTE | 2021-06-16 10:45 | Ophthalmology Operative Report ---
Cataract removal/placement IOL PREOPERATIVE DIAGNOSIS: Cataract Right Eye POSTOPERATIVE DIAGNOSIS: Cataract Right Eye PROCEDURE: Cataract removal and placement of posterior chamber implant, right eye SURGEON: Tez Harding ANESTHESIA: Topical with sedation COMPLICATIONS: None ESTIMATED BLOOD LOSS: Minimal DESCRIPTION OF PROCEDURE: After proper informed consent was obtained, the patient, a 76 female, was taken to the Operating Room and the right eye was anesthetized with tetracaine. The right eye was then prepped and draped in the usual manner. A wire lid speculum was placed. A paracentesis was made at the left hand position. Preservative free lidocaine was injected into the anterior chamber followed by viscoelastic. A clear corneal incision was made in the temporal position. A capsulorrhexis was preformed and the central nuclear and cortical material were removed. The posterior capsule was polished and Guero 21.0 AU00T0 IOL was placed into the capsular bag. The residual viscoelastic was aspirated and balanced saline solution was injected into the anterior chamber. Moxifloxacin was injected into the anterior chamber. The wound was checked and found to be water tight. The patient tolerated the procedure well without complications. TEZ HARDING MD Jun 16, 2021 10:45
[2021-06-16 10:49] VITALS: BP 169/91
[2021-06-16] MEDS ORDERED: acetaZOLAMIDE ER 500 MG CAP (DIAMOX SEQUELS) PO ONE (11:00)
--- NOTE | 2021-06-16 14:04 | Anesthesia-General Post-Op ---
MAC Patient Condition Mental Status/LOC: Same as Preop Cardiovascular: Satisfactory Nausea/Vomiting: Absent Respiratory: Satisfactory Pain: Controlled Complications: Absent Post Op Complications Complications None Follow Up Care/Instructions Patient Instructions None needed. Anesthesiology Discharge Order Discharge Order Patient was seen after the procedure and she was doing well, no complaints, stable vital signs, no apparent adverse anesthesia problems. WILL JOHNSON DO Jun 16, 2021 14:04
== END 2021-06-16 10:51 ==
LOC: SDC 09:27
PROVIDERS: ATTEND Specialist
DX: E11.36 Type 2 diabetes mellitus with diabetic cataract (principal); H25.11 Age-related nuclear cataract, right eye; I10 Essential (primary) hypertension; K21.9 Gastro-esophageal reflux disease without esophagitis; E78.00 Pure hypercholesterolemia, unspecified; Z79.84 Long term (current) use of oral hypoglycemic drugs; Z79.899 Other long term (current) drug therapy; Z87.891 Personal history of nicotine dependence
CPT/HCPCS: 66984; 82947; V2632

== ENCOUNTER 2021-06-30 08:07 | Day surgery (SDC) | payer MEDICARE ==
[~2021-06-30] VITALS: Ht 162.6 cm; Wt 63.6 kg
[~2021-06-30 08:07] MED LIST changes: +ONDA-106 PO; -ONDA8TAB15 PO
[2021-06-30] MEDS: TETRACAINE 0.5% OPHTH SOLN 4 ML BTL (SINGLE DOSE ONLY) OU PRN ×4 (08:12→08:29)
[2021-06-30] MEDS ORDERED: TIMOLOL MALEATE 0.5% 5 ML (TIMOPTIC) BTL OU PRN (08:15)
[2021-06-30] MEDS ORDERED: LIDOCAINE PF 1% 2 ML VIAL IR PRN (08:15)
[2021-06-30] MEDS ORDERED: POVIDONE (BETADINE) OPHTH SOLN 5% 30 ML OP ONE (08:15)
[2021-06-30] MEDS ORDERED: MOXIFLOXACIN OPHTH SOLN 5 MG/ML 0.3 ML SYRINGE OP ONE (08:15)
[2021-06-30] MEDS: PHENYLEPHRINE 10% OPHTH (NEO-SYN) 5 ML BTL OU SCH ×3 (08:18→08:29)
[2021-06-30] MEDS: TROPICAMIDE 1% OPH SOLN (MYDRIACYL) 15 ML BTL OP SCH ×3 (08:18→08:29)
[2021-06-30 08:33] VITALS: BP 138/75
--- NOTE | 2021-06-30 08:50 | Ophthalmologist Pre-Op Note ---
Pre-Operative Progress Note H&P Reviewed The H&P was reviewed, patient examined and no changes noted. Date H&P Reviewed: Jun 30, 2021 Time H&P Reviewed: 08:49 Pre-Op Dx Cataract, Left Eye SHARI HARDING MD Jun 30, 2021 08:50
[2021-06-30] MEDS ORDERED: MIDAZOLAM 2 MG/2 ML (VERSED) VIAL ONE (08:54)
--- NOTE | 2021-06-30 09:09 | Ophthalmology Operative Report ---
Cataract removal/placement IOL PREOPERATIVE DIAGNOSIS: Cataract Left Eye POSTOPERATIVE DIAGNOSIS: Cataract Left Eye PROCEDURE: Cataract removal and placement of posterior chamber implant, left eye SURGEON: Tez Harding ANESTHESIA: Topical with sedation COMPLICATIONS: None ESTIMATED BLOOD LOSS: Minimal DESCRIPTION OF PROCEDURE: After proper informed consent was obtained, the patient, a 76 female, was taken to the Operating Room and the left eye was anesthetized with tetracaine. The left eye was then prepped and draped in the usual manner. A wire lid speculum was placed. A paracentesis was made at the left hand position. Preservative free lidocaine was injected into the anterior chamber followed by viscoelastic. A clear corneal incision was made in the temporal position. A capsulorrhexis was preformed and the central nuclear and cortical material were removed. The posterior capsule was polished and an Guero 21.0 AU00T0 was placed into the capsular bag. The residual viscoelastic was aspirated and balanced saline solution was injected into the anterior chamber. Moxifloxacin was injected into the anterior chamber. The wound was checked and found to be water tight. The patient tolerated the procedure well without complications. TEZ HARDING MD Jun 30, 2021 09:09
[2021-06-30 09:16] VITALS: BP 142/68
[2021-06-30] MEDS ORDERED: acetaZOLAMIDE ER 500 MG CAP (DIAMOX SEQUELS) PO ONE (09:30)
--- NOTE | 2021-06-30 12:33 | Anesthesia-General Post-Op ---
MAC Patient Condition Mental Status/LOC: Same as Preop Cardiovascular: Satisfactory Nausea/Vomiting: Absent Respiratory: Satisfactory Pain: Controlled Complications: Absent Post Op Complications Complications None Follow Up Care/Instructions Patient Instructions None needed. Anesthesiology Discharge Order Discharge Order Patient is doing well, no complaints, stable vital signs, no apparent adverse anesthesia problems. No complications reported per nursing. ELIDA BRICEÑO CRNA Jun 30, 2021 12:33
== END 2021-06-30 09:16 | disposition home or self-care (01) ==
LOC: SDC 08:07
PROVIDERS: ATTEND Specialist
DX: E11.36 Type 2 diabetes mellitus with diabetic cataract (principal); H25.12 Age-related nuclear cataract, left eye; E78.00 Pure hypercholesterolemia, unspecified; I10 Essential (primary) hypertension; H91.90 Unspecified hearing loss, unspecified ear; K21.9 Gastro-esophageal reflux disease without esophagitis; E78.5 Hyperlipidemia, unspecified; Z72.0 Tobacco use; Z79.84 Long term (current) use of oral hypoglycemic drugs; Z79.899 Other long term (current) drug therapy
CPT/HCPCS: 66984; 82947; V2632

== ENCOUNTER 2021-09-29 13:39 | Outpatient (RCR) | payer MEDICARE, OTHER ==
[2021-09-29 13:53] LABS: BASOPHILS # (AUTO) 0.1 10^3/uL (0.0-0.1); BASOPHILS % (AUTO) 1 % (0-10); EOSINOPHILS # (AUTO) 0.4 10^3/uL (0.0-0.3); EOSINOPHILS % (AUTO) 6 % (0-10); HEMATOCRIT 38 % (35-52); HEMOGLOBIN 12.5 g/dL (11.5-16.0); LYMPHOCYTES # (AUTO) 1.2 10^3/uL (1.0-4.0); LYMPHOCYTES % (AUTO) 19 % (12-44); MEAN CORPUSCULAR HEMOGLOBIN 31 pg (25-34); MEAN CORPUSCULAR HGB CONC 33 g/dL (32-36); MEAN CORPUSCULAR VOLUME 96 fL (80-99); MEAN PLATELET VOLUME 10.5 fL (9.0-12.2); MONOCYTES # (AUTO) 0.5 10^3/uL (0.0-1.0); MONOCYTES % (AUTO) 9 % (0-12); NEUTROPHILS # (AUTO) 4.1 10^3/uL (1.8-7.8); NEUTROPHILS % (AUTO) 65 % (42-75); PLATELET COUNT 191 10^3/uL (130-400); WHITE BLOOD COUNT 6.2 10^3/uL (4.3-11.0)
[2021-09-29 14:13] LABS: ALANINE AMINOTRANSFERASE 21 U/L (0-55); ALBUMIN 4.6 GM/DL (3.2-4.5); ALKALINE PHOSPHATASE 73 U/L (40-136); BILIRUBIN,TOTAL 0.3 MG/DL (0.1-1.0); BUN/CREATININE RATIO 11; CALCIUM 10.1 MG/DL (8.5-10.1); CARBON DIOXIDE 26 MMOL/L (21-32); CHLORIDE 101 MMOL/L (98-107); CREATININE SERUM 1.09 MG/DL (0.60-1.30); GFR ESTIMATED 52; GLUCOSE 127 MG/DL (70-105); POTASSIUM 3.7 MMOL/L (3.6-5.0); SODIUM 136 MMOL/L (135-145); TOTAL PROTEIN 7.2 GM/DL (6.4-8.2)
== END 2021-10-26 | disposition home or self-care (01) ==
LOC: ONC 13:39
PROVIDERS: ATTEND Internal Medicine Hematology & Oncology
DX: C50.512 Malignant neoplasm of lower-outer quadrant of left female breast (principal); I10 Essential (primary) hypertension; E78.00 Pure hypercholesterolemia, unspecified; J98.4 Other disorders of lung; D64.9 Anemia, unspecified; E04.1 Nontoxic single thyroid nodule; Z90.12 Acquired absence of left breast and nipple; Z92.21 Personal history of antineoplastic chemotherapy
CPT/HCPCS: 80053; 82728; 83540; 83550; 85025; G0463; 36415; 99213

== ENCOUNTER → 2022-03-26 | Outpatient (CLI) | payer MEDICARE ==
--- NOTE | 2022-03-26 11:42 | Diagnostic Imaging Report ---
INDICATION: Routine screening. Comparison is made with prior mammogram from 06/19/2019. 2-D and 3-D bilateral screening mammography was performed with CAD. Scattered fibroglandular densities are identified bilaterally. The known malignancy in the central left breast is no longer appreciated. No new mass is identified. No malignant-appearing microcalcifications are identified. Axillae are unremarkable. IMPRESSION: No mammographic features suspicious for malignancy are identified. ACR BI-RADS Category 1: Negative. Result letter will be mailed to the patient. Note: At least 10% of breast cancer is not imaged by mammography. BI-RADS Category 1 Dictated by: Dictated on workstation # [id number]
== END ==
LOC: RAD 09:48
PROVIDERS: ATTEND Internal Medicine Hematology & Oncology
DX: Z00.00 Encounter for general adult medical examination without abnormal findings (principal); Z12.31 Encounter for screening mammogram for malignant neoplasm of breast; Z85.3 Personal history of malignant neoplasm of breast
CPT/HCPCS: 77063; 77067

== ENCOUNTER → 2022-09-11 | Outpatient (CLI) | payer MEDICARE ==
[~2022-09-11] MED LIST changes: +CATHETER FLUSH 10 ML SYR IV PRN; +HOLD METFORMIN - RECEIVED CONTRAST 20 ML VIAL IV SCH; +IOHEXOL 300 MG/ML 100 ML (OMNIPAQUE 300) VIAL IV ONE; +IOHEXOL 350 MG/ML 100 ML (OMNIPAQUE 350) VIAL IV ONE; +NS 100 ML (IVPB) BAG IV ONE
--- NOTE | 2022-09-11 12:22 | Diagnostic Imaging Report ---
PROCEDURE: CT chest, abdomen, and pelvis with contrast. TECHNIQUE: Multiple contiguous axial images were obtained through the chest, abdomen, and pelvis after the administration of intravenous contrast. Auto Exposure Controls were utilized during the CT exam to meet ALARA standards for radiation dose reduction. INDICATION: Breast neoplasm. COMPARISON: Correlation is made with prior CT studies dating back to 07/16/2019. FINDINGS: CT CHEST: Postop changes to the left breast are noted. No axillary lymphadenopathy is identified. No internal mammary lymphadenopathy is identified. No mediastinal or hilar lymphadenopathy is detected. There is no pericardial or pleural fluid detected. The left lobe thyroid nodule appears stable. Left apical pleural-parenchymal scarring is noted which may be post-therapeutic. There appears to be some pleural thickening anteriorly on the left as well which may be post-therapeutic. There are areas of scarring in the upper lung garduno bilaterally. No discrete mass or pulmonary nodule is identified. No infiltrate is detected. CT ABDOMEN AND PELVIS: The liver and gallbladder are unremarkable. No biliary ductal dilatation is seen. The pancreas and spleen are unremarkable. No adrenal mass is identified. The kidneys are unremarkable. The aorta is nonaneurysmal. No central retroperitoneal or mesenteric lymphadenopathy is detected. The small and large bowel loops are of normal caliber. There is moderate stool in the colon. There is no ascites. The uterus and bladder are unremarkable. No pelvic lymphadenopathy is seen. The bony structures demonstrate an L1 compression deformity, new since the CT from 2018. No definite osteolytic or blastic lesions are seen. IMPRESSION: 1. Post-therapeutic changes to the left breast and left chest. No thoracic, abdominal, or pelvic lymphadenopathy or evidence of metastatic disease is detected. 2. L1 compression deformity, new since the study from 2018. If there is concern for acuity, MRI could be performed for further evaluation. Dictated by: Dictated on workstation # [id number]
== END ==
LOC: RAD 10:34
PROVIDERS: ATTEND Internal Medicine Hematology & Oncology
DX: C50.212 Malignant neoplasm of upper-inner quadrant of left female breast (principal); M43.9 Deforming dorsopathy, unspecified
CPT/HCPCS: 71260; 74177

== ENCOUNTER 2022-09-17 13:48 | Outpatient (RCR) | payer MEDICARE, OTHER ==
[2022-09-11 10:29] LABS: BASOPHILS # (AUTO) 0.1 10^3/uL (0.0-0.1); BASOPHILS % (AUTO) 1 % (0-10); EOSINOPHILS # (AUTO) 0.1 10^3/uL (0.0-0.3); EOSINOPHILS % (AUTO) 2 % (0-10); HEMATOCRIT 37 % (35-52); HEMOGLOBIN 12.2 g/dL (11.5-16.0); LYMPHOCYTES % (AUTO) 15 % (12-44); MEAN CORPUSCULAR HEMOGLOBIN 33 pg (25-34); MEAN CORPUSCULAR HGB CONC 33 g/dL (32-36); MEAN CORPUSCULAR VOLUME 99 fL (80-99); MEAN PLATELET VOLUME 10.8 fL (9.0-12.2); MONOCYTES # (AUTO) 0.5 10^3/uL (0.0-1.0); MONOCYTES % (AUTO) 7 % (0-12); NEUTROPHILS # (AUTO) 4.9 10^3/uL (1.8-7.8); NEUTROPHILS % (AUTO) 75 % (42-75); PLATELET COUNT 169 10^3/uL (130-400); WHITE BLOOD COUNT 6.5 10^3/uL (4.3-11.0)
[2022-09-11 10:46] LABS: ALBUMIN 4.5 GM/DL (3.2-4.5)
[2022-09-11 10:47] LABS: CALCIUM 10.1 MG/DL (8.5-10.1)
[2022-09-11 10:48] LABS: TOTAL PROTEIN 7.7 GM/DL (6.4-8.2)
[2022-09-11 10:50] LABS: BILIRUBIN,TOTAL 0.4 MG/DL (0.1-1.0)
[2022-09-11 10:52] LABS: CREATININE SERUM 1.01 MG/DL (0.60-1.30)
[~2022-09-17 13:48] MED LIST changes: -CATHETER FLUSH 10 ML SYR IV PRN; -HOLD METFORMIN - RECEIVED CONTRAST 20 ML VIAL IV SCH; -IOHEXOL 300 MG/ML 100 ML (OMNIPAQUE 300) VIAL IV ONE; -IOHEXOL 350 MG/ML 100 ML (OMNIPAQUE 350) VIAL IV ONE; -NS 100 ML (IVPB) BAG IV ONE
== END 2022-09-25 | disposition home or self-care (01) ==
LOC: ONC 13:48
PROVIDERS: ATTEND Internal Medicine Hematology & Oncology
DX: C50.512 Malignant neoplasm of lower-outer quadrant of left female breast (principal); I10 Essential (primary) hypertension; E78.00 Pure hypercholesterolemia, unspecified; J98.4 Other disorders of lung; D64.9 Anemia, unspecified; Z92.21 Personal history of antineoplastic chemotherapy; Z98.890 Other specified postprocedural states
CPT/HCPCS: 36415; 80053; 82728; 83540; 83550; 85025

== ENCOUNTER → 2022-09-20 | Outpatient (CLI) | payer MEDICARE | LOC: RAD 08:52 | PROVIDERS: ATTEND Internal Medicine Hematology & Oncology | DX: Z51.81 Encounter for therapeutic drug level monitoring (principal); C50.519 Malignant neoplasm of lower-outer quadrant of unspecified female breast ==